=== PATIENT | female | born 1940 | race Caucasian/White ===

== ENCOUNTER 2017-06-23 15:43 | Inpatient (IN) | payer MEDICARE ==
[2017-06-23] MEDS ORDERED: Aspirin Low Dose CHEW TAB* 81 MG PO ONE (17:20)
--- NOTE | 2017-06-23 18:04 | RAD ---
INDICATION: Chest pain COMPARISON: None TECHNIQUE: An AP portable view obtained at 1758 hours is submitted. FINDINGS: Bones/Soft Tissues: There are no acute bony findings. Cardiomediastinal: The cardiomediastinal silhouette is normal. Lungs: There is mild linear change left lung base most consistent with atelectasis. There is infiltrate in the right lung base. This could represent compressive atelectasis. Pleura: There are no pleural effusions. Other: None IMPRESSION: BIBASILAR INFILTRATES AND RIGHT-SIDED EFFUSION. SUGGEST FOLLOW-UP.
[2017-06-23 18:13] LABS: Hematocrit 31 % (35-47); Hemoglobin 10.5 g/dl (12.0-16.0); Mean Corpuscular HGB Conc 34 g/dl (31-36); Mean Corpuscular Hemoglobin 31 pg (27-31); Mean Corpuscular Volume 92 fL (80-97); Mean Platelet Volume 7 um3 (7.4-10.4); Red Blood Count 3.35 10^6/ul (4.0-5.4); Red Cell Distribution Width 15 % (10.5-15); White Blood Count 10.7 10^3/ul (3.5-10.8)
[2017-06-23 18:17] LABS: Albumin 3.3 g/dL (3.2-5.2); BUN/Creatinine Ratio 15.7 (8-20); Calcium 9.3 mg/dL (8.6-10.3); EGFR African American 79.5 (>60); EGFR Non-African American 61.8 (>60); Globulin 2.9 g/dL (2-4); Potassium 3.9 mmol/L (3.5-5.0); Total Bilirubin 0.8 mg/dL (0.2-1.0); Total Protein 6.2 g/dL (6.4-8.9)
[2017-06-23] MEDS ORDERED: Albuterol/Ipratropium NEB.SOL* Albuterol 2.5 MG/Ipratropium 0.5 MG 3 ML INH ONE (18:45)
[2017-06-23] MEDS ORDERED: Iohexol 350* (CONTRAST) 500 ML MDV IV ONE (19:00)
[2017-06-23 19:05] LABS: Troponin I 0.05 ng/mL (<0.04)
--- NOTE | 2017-06-23 20:05 | RAD ---
INDICATION: Right-sided infiltrate and effusion. Short of breath. Evaluate for pulmonary embolus. COMPARISON: Chest x-ray same date TECHNIQUE: Axial source images were obtained from the thoracic inlet to the hemidiaphragms following administration of [address] angiographic technique was utilized. Coronal and sagittal reconstructed images were acquired. CHEST FINDINGS: Neck/thyroid: The visualized neck to include the thyroid appear normal. Chest wall: There are no acute abnormalities of the bony thorax or chest wall. There is no supraclavicular, infraclavicular, or axillary lymphadenopathy. Lungs : There is infiltrate right lung base which may represent compression atelectasis. There is a moderate sized right-sided pleural effusion. There is minimal left basilar atelectasis. The pulmonary interstitium appears normal. There are no endobronchial lesions. Cardiomediastinal structures: There is no CT evidence of acute pulmonary embolic disease. The heart is normal in size. There is no pericardial effusion. There is no evidence of aortic aneurysm or dissection. There is prior mitral and tricuspid valvular surgery. There is no mediastinal or hilar adenopathy. The esophagus appears normal. Pleura : There are no pleural-based masses or effusions. Other: None. IMPRESSION: NO CT EVIDENCE OF ACUTE PULMONARY EMBOLIC DISEASE. RIGHT BASILAR INFILTRATE. VALVULAR SURGERY.
[2017-06-23] MEDS ORDERED: Ciprofloxacin 400MG IVPREMIX(* 400 MG/200 ML BAG IVPB ONE (20:10)
[2017-06-23] MEDS ORDERED: Cefepime(*) 2 GM in NS 0.9% 50 ML* 50 ML IVPB ONE (20:10)
[2017-06-23] MEDS ORDERED: NS 0.9% 1000 ML* 1,000 ML IV ONE (21:30)
[2017-06-23] MEDS ORDERED: Vancomycin(*) 1,250 MG in NS 0.9% 250 ML* 250 ML IVPB ONE (21:30)
[2017-06-23] MEDS ORDERED: Vancomycin per Pharmacy* NOTE FOLLOW UP SCH (23:45)
[2017-06-23] MEDS ORDERED: oxyCODONE TAB* 5 MG TAB PO PRN (23:53)
[2017-06-23] MEDS ORDERED: Ondansetron INJ* 2 MG/ML VIAL IV PRN (23:56)
[2017-06-23] MEDS ORDERED: Acetaminophen TAB* 325 MG PO PRN (23:56)
[2017-06-23] MEDS ORDERED: Albuterol 2.5 MG/3 ML NEB.SOL* (0.083%) INH PRN (23:56)
[2017-06-23] MEDS ORDERED: CMCS: Melatonin (NF) 3 MG TAB PO PRN (23:56)
[2017-06-24] MEDS ORDERED: Metoprolol Tartrate TAB* 25 MG PO SCH ×2 (02:49→09:00)
[2017-06-24] MEDS: Metoprolol Tartrate TAB* 25 MG PO SCH ×3 (03:36→20:16)
--- NOTE | 2017-06-24 05:52 | HP ---
H&P (Free Text) History and Physical: PCP: Brown Coronado MD Cardiology: Ayush Moore MD CardioThoracic Surgery: Alejandra Riley MD [facility] Date/Time: 06/23/2017 2310 CC: chest pain HPI: Mrs Burkett is a 76YO female who underwent mitral and tricuspid valve repairs as well as an ablation for atrial fibrillation at [facility] 2016 complicated by a surgical site infection for which she completed a course of antibiotics. She awoke last night (06/22 - 06/23) with sharp lower R chest pain radiating to the R shoulder associated with SOB which is worse with inspiration, but without alleviating factors. She denies N/V, palpitations, light-headedness, and sweats. There has been subjective fevers, but no chills or sweats. She saw her PCP yesterday who recommended ED evaluation. While in the ED her saO2 was noted to be in the high 80s on RA. 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 05/18/2017 psoriatic arthritis peripheral neuropathy RBBB pleural effusion Ambulatory Orders Glucosamine-Chondroitin [Osteo Bi-Flex Regular Str 250-200 mg] 1 tab PO DAILY Acetaminophen [Acetaminophen Extra Stren] 1,000 mg PO Q6HR PRN 06/23/17 Aspirin Low Dose CHEW TAB* [Aspirin Low Dose TAB*] 81 mg PO DAILY 06/23/17 Folic Acid TAB* [Folvite TAB*] 2 mg PO DAILY 06/23/17 Furosemide TAB* [Lasix TAB*] 20 mg PO TUSA 06/23/17 Gabapentin CAP(*) [Neurontin 100 mg CAP(*)] 100 mg PO BEDTIME 06/23/17 Methotrexate TAB* 15 mg PO HADDAD 06/23/17 Metoprolol Tartrate TAB* [Lopressor TAB*] 12.5 mg PO BID 06/23/17 Multivitamins/Minerals TAB* [Theragran/minerals TAB*] 1 tab PO DAILY 06/23/17 Warfarin TAB(*) [Coumadin TAB(*)] 2 mg PO DAILY 06/23/17 oxyCODONE TAB* [Roxycodone TAB 5 mg*] 5 mg PO Q4H PRN 06/23/17 Allergies Varenicline [From Chantix] Allergy (Verified 12/22/16 09:21) Unknown Reaction Details ENVIRONMENTAL Allergy (Uncoded 05/19/16 12:31) Runny Nose PSurgHx mitral and tricuspid valve repairs 05/18/2017 atrial ablation 05/18/2017 peptic ulcer surgery 1970s tonsillectomy tubal ligation OU cataract extractions SocHx: former smoker quit 1.5 years ago, minimal alcohol, no recreational drugs ; lives with her ; retired from banking; full code status FamHx: Mother passed at 90 of 'old age'. Father passed at 56 of CAD. Siblings are positive for AFIB, pacer placement, & DM2. ROS: as above, otherwise reviewed and all were negative vitals: Vital Signs Temp 37.1 C 06/24/17 03:43 Pulse 40 06/24/17 03:43 Resp 16 06/24/17 03:43 BP 104/57 06/24/17 03:43 Pulse Ox 90 06/24/17 03:43 Intake & Output 06/23/17 06/23/17 06/24/17 11:59 23:59 11:59 Intake Total 1305.4 Balance 1305.4 Weight 69.4 kg 69.763 kg Intake: IV Fluids 1305.4 Constitutional: NAD, normally developed, well-nourished elderly white female HEENM: atraumatic; sclera/conjunctiva: non-icteric/clear; hearing: clinically intact; oropharynx: clear, mucosa moist Neck: soft tissue: non-tender; thyroid: normal Pulmonary: R>L bibasilar crackles, good aeration, no accessory muscle use CV: BR/RR, normal S1S2, no carotid bruit, no jugular venous distention, 2+ B DP/ PT, no edema Abdominal: soft, non-distended, non-tender, no rebound/guarding/rigidity, normoactive bowel sounds, no hepatosplenomegaly or masses, no costovertebral angle tenderness Musculoskeletal: general: grossly intact, no palpable tenderness Integumental: normal appearance and texture of exposed skin Psychiatric orientation: AA&O to PPS affect: calm mood: cooperative eye contact: good content: reliable responses: timely insight: good Testing: Lab Results 06/23/17 06/23/17 06/23/17 Range/Units 17:45 17:45 17:45 WBC 10.7 (3.5-10.8) 10^3/ul RBC 3.35 L (4.0-5.4) 10^6/ul Hgb 10.5 L (12.0-16.0) g/dl Hct 31 L (35-47) % MCV 92 (80-97) fL MCH 31 (27-31) pg MCHC 34 (31-36) g/dl RDW 15 (10.5-15) % Plt Count 233 (150-450) 10^3/ul MPV 7 L (7.4-10.4) um3 Neut % (Auto) 87.6 H (38-83) % Lymph % (Auto) 7.1 L (25-47) % [place] % (Auto) 4.7 (1-9) % Eos % (Auto) 0.3 (0-6) % Baso % (Auto) 0.3 (0-2) % Absolute Neuts (auto) 9.3 H (1.5-7.7) 10^3/ul Absolute Lymphs (auto) 0.8 L (1.0-4.8) 10^3/ul Absolute Monos (auto) 0.5 (0-0.8) 10^3/ul Absolute Eos (auto) 0 (0-0.6) 10^3/ul Absolute Basos (auto) 0 (0-0.2) 10^3/ul Absolute Nucleated RBC 0 10^3/ul Nucleated RBC % 0 INR (Anticoag Therapy) (0.89-1.11) Sodium 132 L (133-145) mmol/L Potassium 3.9 (3.5-5.0) mmol/L Chloride 101 (101-111) mmol/L Carbon Dioxide 25 (22-32) mmol/L Anion Gap 6 (2-11) mmol/L BUN 14 (6-24) mg/dL Creatinine 0.89 (0.51-0.95) mg/dL Est GFR ( Amer) 79.5 (>60) Est GFR (Non-Af Amer) 61.8 (>60) BUN/Creatinine Ratio 15.7 (8-20) Glucose 109 H (70-100) mg/dL Lactic Acid 1.1 (0.5-2.0) mmol/L Calcium 9.3 (8.6-10.3) mg/dL Total Bilirubin 0.80 (0.2-1.0) mg/dL AST 16 (13-39) U/L ALT 11 (7-52) U/L Alkaline Phosphatase 60 (34-104) U/L Troponin I 0.05 H* (<0.04) ng/mL B-Natriuretic Peptide ( - 100) pg/mL Total Protein 6.2 L (6.4-8.9) g/dL Albumin 3.3 (3.2-5.2) g/dL Globulin 2.9 (2-4) g/dL Albumin/Globulin Ratio 1.1 (1-3) Influenza A (Rapid) (Negative) Influenza B (Rapid) (Negative) 06/23/17 06/23/17 06/23/17 Range/Units 17:45 17:55 20:32 WBC (3.5-10.8) 10^3/ul RBC (4.0-5.4) 10^6/ul Hgb (12.0-16.0) g/dl Hct (35-47) % MCV (80-97) fL MCH (27-31) pg MCHC (31-36) g/dl RDW (10.5-15) % Plt Count (150-450) 10^3/ul MPV (7.4-10.4) um3 Neut % (Auto) (38-83) % Lymph % (Auto) (25-47) % [place] % (Auto) (1-9) % Eos % (Auto) (0-6) % Baso % (Auto) (0-2) % Absolute Neuts (auto) (1.5-7.7) 10^3/ul Absolute Lymphs (auto) (1.0-4.8) 10^3/ul Absolute Monos (auto) (0-0.8) 10^3/ul Absolute Eos (auto) (0-0.6) 10^3/ul Absolute Basos (auto) (0-0.2) 10^3/ul Absolute Nucleated RBC 10^3/ul Nucleated RBC % INR (Anticoag Therapy) 2.08 H (0.89-1.11) Sodium (133-145) mmol/L Potassium (3.5-5.0) mmol/L Chloride (101-111) mmol/L Carbon Dioxide (22-32) mmol/L Anion Gap (2-11) mmol/L BUN (6-24) mg/dL Creatinine (0.51-0.95) mg/dL Est GFR ( Amer) (>60) Est GFR (Non-Af Amer) (>60) BUN/Creatinine Ratio (8-20) Glucose (70-100) mg/dL Lactic Acid (0.5-2.0) mmol/L Calcium (8.6-10.3) mg/dL Total Bilirubin (0.2-1.0) mg/dL AST (13-39) U/L ALT (7-52) U/L Alkaline Phosphatase (34-104) U/L Troponin I 0.05 H* (<0.04) ng/mL B-Natriuretic Peptide 593 H ( - 100) pg/mL Total Protein (6.4-8.9) g/dL Albumin (3.2-5.2) g/dL Globulin (2-4) g/dL Albumin/Globulin Ratio (1-3) Influenza A (Rapid) (Negative) Influenza B (Rapid) (Negative) 06/23/17 06/24/17 Range/Units 23:27 00:09 WBC (3.5-10.8) 10^3/ul RBC (4.0-5.4) 10^6/ul Hgb (12.0-16.0) g/dl Hct (35-47) % MCV (80-97) fL MCH (27-31) pg MCHC (31-36) g/dl RDW (10.5-15) % Plt Count (150-450) 10^3/ul MPV (7.4-10.4) um3 Neut % (Auto) (38-83) % Lymph % (Auto) (25-47) % [place] % (Auto) (1-9) % Eos % (Auto) (0-6) % Baso % (Auto) (0-2) % Absolute Neuts (auto) (1.5-7.7) 10^3/ul Absolute Lymphs (auto) (1.0-4.8) 10^3/ul Absolute Monos (auto) (0-0.8) 10^3/ul Absolute Eos (auto) (0-0.6) 10^3/ul Absolute Basos (auto) (0-0.2) 10^3/ul Absolute Nucleated RBC 10^3/ul Nucleated RBC % INR (Anticoag Therapy) (0.89-1.11) Sodium (133-145) mmol/L Potassium (3.5-5.0) mmol/L Chloride (101-111) mmol/L Carbon Dioxide (22-32) mmol/L Anion Gap (2-11) mmol/L BUN (6-24) mg/dL Creatinine (0.51-0.95) mg/dL Est GFR ( Amer) (>60) Est GFR (Non-Af Amer) (>60) BUN/Creatinine Ratio (8-20) Glucose (70-100) mg/dL Lactic Acid (0.5-2.0) mmol/L Calcium (8.6-10.3) mg/dL Total Bilirubin (0.2-1.0) mg/dL AST (13-39) U/L ALT (7-52) U/L Alkaline Phosphatase (34-104) U/L Troponin I 0.04 H* (<0.04) ng/mL B-Natriuretic Peptide ( - 100) pg/mL Total Protein (6.4-8.9) g/dL Albumin (3.2-5.2) g/dL Globulin (2-4) g/dL Albumin/Globulin Ratio (1-3) Influenza A (Rapid) Negative (Negative) Influenza B (Rapid) Negative (Negative) ECG, personally reviewed: tachycardia supraventricular bigeminy RBBB rate 114, no ischemia CXR, personally reviewed: IMPRESSION: BIBASILAR INFILTRATES AND RIGHT-SIDED EFFUSION. SUGGEST FOLLOW-UP. CTA chest, personally reviewed: IMPRESSION: NO CT EVIDENCE OF ACUTE PULMONARY EMBOLIC DISEASE. RIGHT BASILAR INFILTRATE. VALVULAR SURGERY. Impression: 76F presenting with atypical R chest pain 1 month after mitral & tricuspid repairs and ablation for AFIB found to be hypoxic in the high 80s on RA with bibasilar infiltrates and R pleural effusion concerning for HCAP DIAGNOSIS & PLAN Primary suspect RLL HCAP : IV vancomycin, cefepime, & ciprofloxacin : IVFs, cautiously given elevated BNP : blood & sputum CXs : supplemental oxygen : supportive care R chest pain, atypical : telemetry : trend troponin R pleural effusion : pleural effusion was listed on D/C summary, but lateralization not identified : likely 2nd mitral/tricuspid repairs, but possibly para-pneumonic : consider thoracentesis pending clinical course AFIB, persistent : telemetry : continue warfarin & metoprolol Secondary psoriatic arthritis : hold methotrexate Admission Rational: inpatient for suspected HCAP requiring IV ABX and IVSs in patient at high risk of complications, inappropriate for outpatient setting DVTp: warfarin Code Status: full HCP:
[2017-06-24] MEDS: Omeprazole CAP* 20 MG PO SCH (06:02)
[2017-06-24] MEDS: Vancomycin(*) 750 MG in NS 0.9% 250 ML* 250 ML IVPB SCH ×3 (06:05→22:45)
[2017-06-24 07:07] LABS: Hematocrit 27 % (35-47); Hemoglobin 9.3 g/dl (12.0-16.0); Mean Corpuscular HGB Conc 34 g/dl (31-36); Mean Corpuscular Hemoglobin 31 pg (27-31); Mean Corpuscular Volume 92 fL (80-97); Mean Platelet Volume 7 um3 (7.4-10.4); Red Blood Count 2.98 10^6/ul (4.0-5.4); Red Cell Distribution Width 15 % (10.5-15); White Blood Count 8.7 10^3/ul (3.5-10.8)
[2017-06-24 07:51] LABS: EGFR African American 75.6 (>60); EGFR Non-African American 58.8 (>60)
[2017-06-24] MEDS: Aspirin Low Dose CHEW TAB* 81 MG PO SCH (08:50)
[2017-06-24] MEDS: guaiFENesin ER TAB 600 MG PO SCH ×2 (08:51→20:15)
[2017-06-24] MEDS: Cefepime(*) 2 GM in NS 0.9% 50 ML* 50 ML IVPB SCH ×2 (08:53→20:18)
[2017-06-24] MEDS ORDERED: Docusate CAP* 100 MG PO SCH (09:00)
[2017-06-24] MEDS: Ciprofloxacin IV(*) 400 MG in D5W 250 ML BAG* 160 ML IVPB SCH ×2 (10:06→21:31)
--- NOTE | 2017-06-24 13:49 | PN ---
Subjective Date of Service: 06/24/17 Interval History: Less SOB today. Minimal cough, dry. More energy. No chest pain. No more chilly feeling. No new c/o. Objective Active Medications: Acetaminophen (Tylenol Tab*) 650 mg PO Q6H PRN PRN Reason: FEVER/PAIN Albuterol (Ventolin 2.5 Mg/3 Ml Neb.Chuyita*) 2.5 mg INH Q2H PRN PRN Reason: SOB/WHEEZING Aspirin (Aspirin Low Dose Tab*) 81 mg PO DAILY [facility] Last Admin: 06/24/17 08:50 Dose: 81 mg Docusate Sodium (Colace Cap*) 200 mg PO BID [facility] Last Admin: 06/24/17 08:50 Dose: 200 mg Furosemide (Lasix Tab*) 20 mg PO TuSa@0900 [facility] Gabapentin (Neurontin Cap(*)) 100 mg PO BEDTIME [facility] Guaifenesin (Mucinex*) 1,200 mg PO BID [facility] Last Admin: 06/24/17 08:51 Dose: 1,200 mg Ciprofloxacin 400 mg/ Dextrose 200 mls @ 200 mls/hr IVPB Q12H [facility] Last Admin: 06/24/17 10:06 Dose: 200 mls/hr Cefepime HCl 2 gm/ Sodium (Chloride) 50 mls @ 100 mls/hr IVPB Q12H [facility] Last Admin: 06/24/17 08:53 Dose: 100 mls/hr Vancomycin HCl 750 mg/ Sodium (Chloride) 250 mls @ 166.667 mls/hr IVPB Q8H [facility] Last Admin: 06/24/17 13:24 Dose: 166.667 mls/hr Melatonin (Melatonin (Nf)) 3 mg PO BEDTIME PRN; Protocol PRN Reason: Sleep Metoprolol Tartrate (Lopressor Tab*) 12.5 mg PO 0900,2100 [facility] Last Admin: 06/24/17 08:51 Dose: 12.5 mg Omeprazole (Prilosec Cap*) 20 mg PO DAILY@0600 [facility] Last Admin: 06/24/17 06:02 Dose: 20 mg Ondansetron HCl (Zofran Inj*) 4 mg IV Q6H PRN PRN Reason: NAUSEA Oxycodone HCl (Roxycodone Tab*) 5 mg PO Q4H PRN PRN Reason: PAIN Pharmacy Consult (Vancomycin Per Pharmacy*) 1 note FOLLOW UP .VANC PER PHARMACY [facility] Pharmacy Profile Note (Vancomycin Trough Check) 1 note FOLLOW UP 0530 ONE Stop: 06/25/17 05:31 Warfarin Sodium (Coumadin Tab(*)) 2 mg PO DAILY@1700 [facility] PRN Reason: Protocol Vital Signs 06/23/17 06/24/17 06/24/17 23:30 00:00 00:06 Temperature 98.7 F Pulse Rate 83 84 62 Respiratory 23 22 16 Rate Blood Pressure 105/64 115/59 134/62 (mmHg) O2 Sat by Pulse 93 93 100 Oximetry 06/24/17 06/24/17 06/24/17 00:12 03:43 07:02 Temperature 99.9 F 98.7 F Pulse Rate 40 Respiratory 16 16 Rate Blood Pressure 104/57 (mmHg) O2 Sat by Pulse 90 Oximetry 06/24/17 06/24/17 07:13 11:48 Temperature 100.9 F 100.3 F Pulse Rate 66 81 Respiratory 16 16 Rate Blood Pressure 138/57 106/56 (mmHg) O2 Sat by Pulse 93 94 Oximetry Oxygen Devices in Use Now: None Appearance: Alert, partly up in bed. In good spirits. Looks comfortable. Neck: NL Appearance and Movements; NL JVP, No Thyroid Enlargement, Masses Respiratory: Symmetrical Chest Expansion and Respiratory Effort, - - Dull to percussion R base. Few rales R base Cardiovascular: NL Sounds; No Murmurs; No JVD, RRR, No Edema, - Extremities: No Edema, No Clubbing, Cyanosis, - Skin: No Rash or Ulcers, No Nodules or Sclerosis, - Neurological: Alert and Oriented x 3, NL Sensation Result Diagrams: 06/24/17 06:23 06/24/17 06:23 Additional Lab and Data: Lab Results 06/23/17 06/23/17 06/23/17 Range/Units 17:45 17:45 17:45 WBC 10.7 (3.5-10.8) 10^3/ul RBC 3.35 L (4.0-5.4) 10^6/ul Hgb 10.5 L (12.0-16.0) g/dl Hct 31 L (35-47) % MCV 92 (80-97) fL MCH 31 (27-31) pg MCHC 34 (31-36) g/dl RDW 15 (10.5-15) % Plt Count 233 (150-450) 10^3/ul MPV 7 L (7.4-10.4) um3 Neut % (Auto) 87.6 H (38-83) % Lymph % (Auto) 7.1 L (25-47) % [place] % (Auto) 4.7 (1-9) % Eos % (Auto) 0.3 (0-6) % Baso % (Auto) 0.3 (0-2) % Absolute Neuts (auto) 9.3 H (1.5-7.7) 10^3/ul Absolute Lymphs (auto) 0.8 L (1.0-4.8) 10^3/ul Absolute Monos (auto) 0.5 (0-0.8) 10^3/ul Absolute Eos (auto) 0 (0-0.6) 10^3/ul Absolute Basos (auto) 0 (0-0.2) 10^3/ul Absolute Nucleated RBC 0 10^3/ul Nucleated RBC % 0 Sodium 132 L (133-145) mmol/L Potassium 3.9 (3.5-5.0) mmol/L Chloride 101 (101-111) mmol/L Carbon Dioxide 25 (22-32) mmol/L Anion Gap 6 (2-11) mmol/L BUN 14 (6-24) mg/dL Creatinine 0.89 (0.51-0.95) mg/dL Est GFR ( Amer) 79.5 (>60) Est GFR (Non-Af Amer) 61.8 (>60) BUN/Creatinine Ratio 15.7 (8-20) Glucose 109 H (70-100) mg/dL Lactic Acid 1.1 (0.5-2.0) mmol/L Calcium 9.3 (8.6-10.3) mg/dL Total Bilirubin 0.80 (0.2-1.0) mg/dL AST 16 (13-39) U/L ALT 11 (7-52) U/L Alkaline Phosphatase 60 (34-104) U/L Troponin I Pending Total Protein 6.2 L (6.4-8.9) g/dL Albumin 3.3 (3.2-5.2) g/dL Globulin 2.9 (2-4) g/dL Albumin/Globulin Ratio 1.1 (1-3) Microbiology and Other Data: Microbiology 06/24/17 01:20 Legionella Urinary Antigen - Final Urine Negative Legionella Streptococcus pneumoniae Ag Screen - Final Negative S. pneumo Antigen 06/24/17 00:05 Influenza Types A,B Antigen (YASMIN) - Final Nasopharyngeal Specimen received for Influenza A/B Molecular testing Assess/Plan/Problems-Billing Assessment: - Patient Problems (1) Pneumonia Current Visit: Yes Status: Acute Code(s): J18.9 - PNEUMONIA, UNSPECIFIED ORGANISM SNOMED Code(s): 060410875 Comment: Admitted 29 days after discharge from [facility]. Clinically responding to antibiotics as of 06/24. Continue antibiotics. Awaiting blood C&S report. O2 sat 95-97% on RA 06/24 at rest by me. (2) Atrial fibrillation Current Visit: Yes Status: Acute Code(s): I48.91 - UNSPECIFIED ATRIAL FIBRILLATION SNOMED Code(s): 94804066 Comment: INR goal 2.0-2.5 per [facility] physician. I think she missed her dose . INR 06/25. 05/2017: amputation of L atreial appendage, R and L sided ablation. (3) S/P mitral valve repair Current Visit: Yes Status: Acute Code(s): Z98.890 - OTHER SPECIFIED POSTPROCEDURAL STATES SNOMED Code(s): 86818548023264 Comment: 05/2017: Mitral valve reconstruction with a #34 future ring. Amputation of L atrial appendage. (4) Status post tricuspid valve repair Current Visit: Yes Status: Acute Code(s): Z98.890 - OTHER SPECIFIED POSTPROCEDURAL STATES SNOMED Code(s): 383883479066663 Comment: 05/2017: Tricuspid valve annuloplasty with a Simplici-T band. (5) Rheumatoid arthritis Current Visit: Yes Status: Acute Code(s): M06.9 - RHEUMATOID ARTHRITIS, UNSPECIFIED SNOMED Code(s): 10387301 Comment: Pt advised to omit MTX this Jun 28.
[2017-06-24] MEDS: Warfarin TAB(*) 2 MG PO SCH (16:50)
[2017-06-24] MEDS: Gabapentin CAP(*) 100 MG PO SCH (20:15)
[2017-06-25] MEDS ORDERED: Vancomycin Trough Check NOTE FOLLOW UP ONE (05:30)
[2017-06-25] MEDS: Vancomycin(*) 750 MG in NS 0.9% 250 ML* 250 ML IVPB SCH ×3 (05:38→21:37)
[2017-06-25] MEDS: Omeprazole CAP* 20 MG PO SCH (05:38)
[2017-06-25 06:05] LABS: Hematocrit 30 % (35-47); Hemoglobin 9.7 g/dl (12.0-16.0); Mean Corpuscular HGB Conc 33 g/dl (31-36); Mean Corpuscular Hemoglobin 30 pg (27-31); Mean Corpuscular Volume 92 fL (80-97); Mean Platelet Volume 7 um3 (7.4-10.4); Red Blood Count 3.19 10^6/ul (4.0-5.4); Red Cell Distribution Width 15 % (10.5-15); White Blood Count 7.5 10^3/ul (3.5-10.8)
[2017-06-25 06:26] LABS: BUN/Creatinine Ratio 11.2 (8-20); Calcium 8.9 mg/dL (8.6-10.3); EGFR African American 79.5 (>60); EGFR Non-African American 61.8 (>60); Potassium 3.6 mmol/L (3.5-5.0)
--- NOTE | 2017-06-25 08:17 | ED ---
Andrea Faulkner Thomas, scribed for Lacho Cantrell MD on 06/23/17 at 1847 . Shortness of Breath - HPI Summary HPI Summary: The pt is a 76 y/o F referred from her PCPs office and c/o SOB that began yesterday. She also complains of chest pain when taking a deep breath. This pain radiates to her right shoulder, RUQ abdomen, and upper back. This area is not tender to touch. A month ago, she had two heart valve repairs performed at [facility]. She recently finished a course of antibiotics due to an infection of the surgical site. Pt additionally c/o feelings of hotness. Pt denies dizziness, lightheadedness, and cough. She has never been on oxygen before. She reports that after her surgery, her leg swelling improved. PMHx: leaky mitral valve. PSHx: valve repairs. SHx: former smoker. - History of Current Complaint Chief Complaint: EDChestPainROMI Time Seen by Provider: 06/23/17 17:19 Hx Obtained From: Patient Onset/Duration: Lasting Days - onset yesterday, Still Present Timing: Constant Current Severity: Moderate Aggrevating Factors: Nothing Alleviating Factors: Nothing Associated Signs & Symptoms: Chest Pain Unrelated to Cough - Allergy/Home Medications Allergies/Adverse Reactions: Allergies Allergy/AdvReac Type Severity Reaction Status Date / Time Varenicline [From Chantix] Allergy Unknown Verified 12/22/16 09:21 Reaction Details ENVIRONMENTAL Allergy Runny Nose Uncoded 05/19/16 12:31 Home Medications: Home Medications Acetaminophen [Acetaminophen Extra Stren] 1,000 mg PO Q6HR PRN 06/23/17 [ History Confirmed 06/23/17] Aspirin Low Dose CHEW TAB* [Aspirin Low Dose TAB*] 81 mg PO DAILY 06/23/17 [ History Confirmed 06/23/17] Folic Acid TAB* [Folvite TAB*] 2 mg PO DAILY 06/23/17 [History Confirmed ] Furosemide TAB* [Lasix TAB*] 20 mg PO TUSA 06/23/17 [History Confirmed 06/23/17] Gabapentin CAP(*) [Neurontin 100 mg CAP(*)] 100 mg PO BEDTIME 06/23/17 [History Confirmed 06/23/17] Methotrexate TAB* 15 mg PO HADDAD 06/23/17 [History Confirmed 06/23/17] Metoprolol Tartrate TAB* [Lopressor TAB*] 12.5 mg PO BID 06/23/17 [History Confirmed 06/23/17] Multivitamins/Minerals TAB* [Theragran/minerals TAB*] 1 tab PO DAILY 06/23/17 [ History Confirmed 06/23/17] Warfarin TAB(*) [Coumadin TAB(*)] 2 mg PO DAILY 06/23/17 [History Confirmed 09/27] oxyCODONE TAB* [Roxycodone TAB 5 mg*] 5 mg PO Q4H PRN 06/23/17 [History Confirmed 06/23/17] PMH/Surg Hx/FS Hx/Imm Hx Previously Healthy: No Cardiovascular History: Reports: Hx Valvular Heart Disease - LEAKY MITRAL VALVE GI History: Reports: Hx Ulcer - PEPTIC ULCER-1969'S- HAD SURGERY FOR- NO PROBLEMS NOW Musculoskeletal History: Reports: Hx Arthritis - PSORIATIC ARTHRITIS IN ALL JOINTS Denies: Hx Osteoporosis Sensory History: Reports: Hx Cataracts, Hx Contacts or Glasses - GLASSES Denies: Hx Hearing Aid Opthamlomology History: Reports: Hx Cataracts, Hx Contacts or Glasses - GLASSES - Surgical History Surgery Procedure, Year, and Place: 1944 TONSILLECTOMY, [facility]. 1975 PEPTIC ULCER REPAIR, [facility] [place]. 1979' TUBAL LIGATION, [facility] [place]. 2009 BASAL CELL CARCINOMA REMOVED FROM RIGHT ARM AND RIGHT LEG, OFFICE. CYST REMOVED FROM INSIDE OF MOUTH, [facility] [place]. CYST REMOVED FROM THE LEFT SIDE OF NECK, OFFICE Hx Anesthesia Reactions: No - Immunization History Date of Tetanus Vaccine: unknown Date of Influenza Vaccine: 2015 Infectious Disease History: No Infectious Disease History: Denies: Traveled Outside the [place] in Last 30 Days - Family History Known Family History: Negative: Blood Disorder - Social History Alcohol Use: Occasionally Alcohol Amount: 1-2 DRINKS Substance Use Type: Reports: None Smoking Status (MU): Former Smoker Amount Used/How Often: <1/2 PPD X 50 YEARS AGO Have You Smoked in the Last Year: Yes Review of Systems Positive: Other - POS: feelings of hotness. Negative: Fever, Chills Negative: Erythema - eyes Negative: Sore Throat Positive: Chest Pain - when taking a deep breath, radiates to right shoulder, RUQ abdomen, and upper back Positive: Shortness Of Breath - onset yesterday Negative: Abdominal Pain, Vomiting, Nausea Negative: dysuria, hematuria Negative: Myalgia, Edema - legs Negative: Rash Neurological: Other - NEG: dizziness, lightheadedness All Other Systems Reviewed And Are Negative: Yes Physical Exam - Summary Physical Exam Summary: Constitutional: Well-developed, Well-nourished, Alert. (-) Distressed Skin: Warm, Dry HENT: Normocephalic; Atraumatic Eyes: Conjunctiva normal Neck: Musculoskeletal ROM normal neck. (-) JVD, (-) Stridor, (-) Tracheal deviation Cardio: Rhythm regular, rate normal, Heart sounds normal; Intact distal pulses; The pedal pulses are 2+ and symmetric. Radial pulses are 2+ and symmetric. (-) Murmur Pulmonary/Chest wall: There are rhonchi at the base. Effort normal. (-) Respiratory distress, (-) Wheezes, (-) Rales Abd: Soft, (-) Tenderness, (-) Distension, (-) Guarding, (-) Rebound Musculoskeletal: (-) Edema Lymph: (-) Cervical adenopathy Neuro: Alert, Oriented x3 Psych: Mood and affect Normal Triage Information Reviewed: Yes Vital Signs On Initial Exam: Initial Vitals Temp Pulse Resp BP Pulse Ox 100.1 F 106 20 117/85 99 06/23/17 15:46 06/23/17 15:46 06/23/17 15:46 06/23/17 15:46 06/23/17 15:46 Vital Signs Reviewed: Yes - Dianna Coma Scale Coma Scale Total: 15 Diagnostics - Vital Signs Vital Signs Temp Pulse Resp BP Pulse Ox 06/23/17 17:30 48 26 110/57 91 06/23/17 17:00 63 26 102/51 93 06/23/17 16:37 104 06/23/17 16:30 60 95/58 94 06/23/17 16:29 104 06/23/17 16:07 92 88 06/23/17 16:06 54 70 06/23/17 16:04 101/64 06/23/17 15:46 100.1 F 106 20 117/85 99 - Laboratory Lab Results: Lab Results 06/23/17 06/23/17 06/23/17 Range/Units 17:45 17:45 17:45 WBC 10.7 (3.5-10.8) 10^3/ul RBC 3.35 L (4.0-5.4) 10^6/ul Hgb 10.5 L (12.0-16.0) g/dl Hct 31 L (35-47) % MCV 92 (80-97) fL MCH 31 (27-31) pg MCHC 34 (31-36) g/dl RDW 15 (10.5-15) % Plt Count 233 (150-450) 10^3/ul MPV 7 L (7.4-10.4) um3 Neut % (Auto) 87.6 H (38-83) % Lymph % (Auto) 7.1 L (25-47) % Cooke % (Auto) 4.7 (1-9) % Eos % (Auto) 0.3 (0-6) % Baso % (Auto) 0.3 (0-2) % Absolute Neuts (auto) 9.3 H (1.5-7.7) 10^3/ul Absolute Lymphs (auto) 0.8 L (1.0-4.8) 10^3/ul Absolute Monos (auto) 0.5 (0-0.8) 10^3/ul Absolute Eos (auto) 0 (0-0.6) 10^3/ul Absolute Basos (auto) 0 (0-0.2) 10^3/ul Absolute Nucleated RBC 0 10^3/ul Nucleated RBC % 0 Sodium 132 L (133-145) mmol/L Potassium 3.9 (3.5-5.0) mmol/L Chloride 101 (101-111) mmol/L Carbon Dioxide 25 (22-32) mmol/L Anion Gap 6 (2-11) mmol/L BUN 14 (6-24) mg/dL Creatinine 0.89 (0.51-0.95) mg/dL Est GFR ( Amer) 79.5 (>60) Est GFR (Non-Af Amer) 61.8 (>60) BUN/Creatinine Ratio 15.7 (8-20) Glucose 109 H (70-100) mg/dL Lactic Acid 1.1 (0.5-2.0) mmol/L Calcium 9.3 (8.6-10.3) mg/dL Total Bilirubin 0.80 (0.2-1.0) mg/dL AST 16 (13-39) U/L ALT 11 (7-52) U/L Alkaline Phosphatase 60 (34-104) U/L Troponin I Pending Total Protein 6.2 L (6.4-8.9) g/dL Albumin 3.3 (3.2-5.2) g/dL Globulin 2.9 (2-4) g/dL Albumin/Globulin Ratio 1.1 (1-3) Result Diagrams: 06/23/17 17:45 06/23/17 17:45 Lab Statement: Any lab studies that have been ordered have been reviewed, and results considered in the medical decision making process. - Radiology CXR Xray Interpretation: Positive (See Comments) - BIBASILAR INFILTRATES AND RIGHT- SIDED EFFUSION. SUGGEST FOLLOW-UP. ED Physician has reviewed these results and agrees. Radiology Interpretation Completed By: Radiologist - CT CTA Chest CT Interpretation: Positive (See Comments) - NO CT EVIDENCE OF ACUTE PULMONARY EMBOLIC DISEASE. RIGHT BASILAR INFILTRATE. VALVULAR SURGERY. ED Physician has reviewed these results and agrees. CT Interpretation Completed By: Radiologist Course/Dx - Course Assessment/Plan: The pt is a 76 y/o F referred from her PCPs office and c/o SOB that began yesterday. She also complains of chest pain when taking a deep breath. This pain radiates to her right shoulder, RUQ abdomen, and upper back. This area is not tender to touch. A month ago, she had two heart valve repairs performed at [facility]. She recently finished a course of antibiotics due to an infection of the surgical site. Pt additionally c/o feelings of hotness. Pt denies dizziness, lightheadedness, and cough. She has never been on oxygen before. She reports that after her surgery, her leg swelling improved. PMHx: leaky mitral valve. PSHx: valve repairs. SHx: former smoker. In the ED course the patient was given albuterol, ASA, Maxipime, Ciproflocaxin, Vancomycin , and IV fluids. Bloodwork was obtained. CXR shows BIBASILAR INFILTRATES AND RIGHT-SIDED EFFUSION. SUGGEST FOLLOW-UP. CTA Abd/Pel shows NO CT EVIDENCE OF ACUTE PULMONARY EMBOLIC DISEASE. RIGHT BASILAR INFILTRATE. VALVULAR SURGERY. She is diagnosed with healthcare-associated pneumonia and hypoxemia. I consulted with Dr. Christianson, cardiothorac surgeon at [facility], at 18:00. He says that her hemoglobin was 10 when she left [facility]. He says that there can be recurrent incisional and pleuritic pain after her surgery. He does not have concern for significant postoperative complication. I also consulted with Dr. Spangler, hospitalist, who admits the patient to [facility] [place]. At 23:09. - Diagnoses Provider Diagnoses: Healthcare-associated pneumonia, Hypoxemia - Physician Notifications Discussed Care of Patient With: Malina Christianson Time Discussed With Above Provider: 18:00 Instructed by Provider To: Other - He says that her hemoglobin was 10 when she left [facility]. He says that there can be recurrent incisional and pleuritic pain after her surgery. He does not have concern for significant postoperative complication. I also consulted with Dr. Spangler, hospitalist, who admits the patient to [facility]. At 23:09. Discharge - Discharge Plan Condition: Fair Disposition: ADMITTED TO [facility] The documentation as recorded by the Andrea anguiano Thomas accurately reflects the service I personally performed and the decisions made by me, Lacho Cantrell MD.
[2017-06-25] MEDS: guaiFENesin ER TAB 600 MG PO SCH ×2 (08:38→20:58)
[2017-06-25] MEDS: Metoprolol Tartrate TAB* 25 MG PO SCH ×2 (08:38→20:58)
[2017-06-25] MEDS: Aspirin Low Dose CHEW TAB* 81 MG PO SCH (08:38)
[2017-06-25] MEDS ORDERED: Ciprofloxacin 400MG IVPREMIX(* 400 MG/200 ML BAG IVPB SCH (09:30)
[2017-06-25] MEDS: Cefepime(*) 2 GM in NS 0.9% 50 ML* 50 ML IVPB SCH ×2 (09:40→19:56)
--- NOTE | 2017-06-25 11:10 | PN ---
Subjective Date of Service: 06/25/17 Interval History: Patient had no palpitations or dizziness or any other sx's during her episode of atrial fib today. No cough, SOB. Feels better. Objective Active Medications: Acetaminophen (Tylenol Tab*) 650 mg PO Q6H PRN PRN Reason: FEVER/PAIN Albuterol (Ventolin 2.5 Mg/3 Ml Neb.Chuyita*) 2.5 mg INH Q2H PRN PRN Reason: SOB/WHEEZING Aspirin (Aspirin Low Dose Tab*) 81 mg PO DAILY [facility] Last Admin: 06/25/17 08:38 Dose: 81 mg Furosemide (Lasix Tab*) 20 mg PO TuSa@0900 [facility] Gabapentin (Neurontin Cap(*)) 100 mg PO BEDTIME [facility] Last Admin: 06/24/17 20:15 Dose: 100 mg Guaifenesin (Mucinex*) 1,200 mg PO BID [facility] Last Admin: 06/25/17 08:38 Dose: 1,200 mg Cefepime HCl 2 gm/ Sodium (Chloride) 50 mls @ 100 mls/hr IVPB Q12H [facility] Last Admin: 06/25/17 09:40 Dose: 100 mls/hr Vancomycin HCl 750 mg/ Sodium (Chloride) 250 mls @ 166.667 mls/hr IVPB Q8H [facility] Last Admin: 06/25/17 05:38 Dose: 166.667 mls/hr Ciprofloxacin/Dextrose (Cipro 400 Mg Ivpremix(*)) 400 mg in 200 mls @ 200 mls/ hr IVPB Q12H [facility] Metoprolol Tartrate (Lopressor Tab*) 12.5 mg PO 0900,2100 [facility] Last Admin: 06/25/17 08:38 Dose: 12.5 mg Omeprazole (Prilosec Cap*) 20 mg PO DAILY@0600 [facility] Last Admin: 06/25/17 05:38 Dose: 20 mg Ondansetron HCl (Zofran Inj*) 4 mg IV Q6H PRN PRN Reason: NAUSEA Oxycodone HCl (Roxycodone Tab*) 5 mg PO Q4H PRN PRN Reason: PAIN Pharmacy Consult (Vancomycin Per Pharmacy*) 1 note FOLLOW UP .VANC PER PHARMACY [facility] Warfarin Sodium (Coumadin Tab(*)) 2 mg PO DAILY@1700 [facility] PRN Reason: Protocol Last Admin: 06/24/17 16:50 Dose: 2 mg Vital Signs 06/24/17 06/24/17 06/24/17 11:48 15:15 19:47 Temperature 100.3 F 100.2 F 99.2 F Pulse Rate 81 86 57 Respiratory 16 18 20 Rate Blood Pressure 106/56 104/50 129/61 (mmHg) O2 Sat by Pulse 94 98 92 Oximetry 06/24/17 06/24/17 06/24/17 20:15 22:15 23:33 Temperature 99.2 F Pulse Rate 86 Respiratory 16 16 20 Rate Blood Pressure 117/61 (mmHg) O2 Sat by Pulse 93 Oximetry 06/25/17 06/25/17 06/25/17 01:44 03:00 07:52 Temperature 99.0 F Pulse Rate 82 Respiratory 24 16 Rate Blood Pressure 116/62 (mmHg) O2 Sat by Pulse 93 93 Oximetry 06/25/17 08:43 Temperature Pulse Rate 82 Respiratory 19 Rate Blood Pressure (mmHg) O2 Sat by Pulse 93 Oximetry Oxygen Devices in Use Now: None Appearance: Alert, in good spirits. Supine in bed. Looks comfortable. No cough during my visit. Eyes: No Scleral Icterus Neck: NL Appearance and Movements; NL JVP, No Thyroid Enlargement, Masses Respiratory: Symmetrical Chest Expansion and Respiratory Effort - dull to percussion and diminished BS R base Cardiovascular: NL Sounds; No Murmurs; No JVD, RRR, No Edema, - Extremities: No Edema, No Clubbing, Cyanosis, - Skin: No Rash or Ulcers, No Nodules or Sclerosis, - Neurological: Alert and Oriented x 3, NL Sensation Result Diagrams: 06/25/17 04:54 06/25/17 04:54 Additional Lab and Data: Lab Results 06/23/17 06/23/17 06/23/17 Range/Units 17:45 17:45 17:45 WBC 10.7 (3.5-10.8) 10^3/ul RBC 3.35 L (4.0-5.4) 10^6/ul Hgb 10.5 L (12.0-16.0) g/dl Hct 31 L (35-47) % MCV 92 (80-97) fL MCH 31 (27-31) pg MCHC 34 (31-36) g/dl RDW 15 (10.5-15) % Plt Count 233 (150-450) 10^3/ul MPV 7 L (7.4-10.4) um3 Neut % (Auto) 87.6 H (38-83) % Lymph % (Auto) 7.1 L (25-47) % Ward % (Auto) 4.7 (1-9) % Eos % (Auto) 0.3 (0-6) % Baso % (Auto) 0.3 (0-2) % Absolute Neuts (auto) 9.3 H (1.5-7.7) 10^3/ul Absolute Lymphs (auto) 0.8 L (1.0-4.8) 10^3/ul Absolute Monos (auto) 0.5 (0-0.8) 10^3/ul Absolute Eos (auto) 0 (0-0.6) 10^3/ul Absolute Basos (auto) 0 (0-0.2) 10^3/ul Absolute Nucleated RBC 0 10^3/ul Nucleated RBC % 0 Sodium 132 L (133-145) mmol/L Potassium 3.9 (3.5-5.0) mmol/L Chloride 101 (101-111) mmol/L Carbon Dioxide 25 (22-32) mmol/L Anion Gap 6 (2-11) mmol/L BUN 14 (6-24) mg/dL Creatinine 0.89 (0.51-0.95) mg/dL Est GFR ( Amer) 79.5 (>60) Est GFR (Non-Af Amer) 61.8 (>60) BUN/Creatinine Ratio 15.7 (8-20) Glucose 109 H (70-100) mg/dL Lactic Acid 1.1 (0.5-2.0) mmol/L Calcium 9.3 (8.6-10.3) mg/dL Total Bilirubin 0.80 (0.2-1.0) mg/dL AST 16 (13-39) U/L ALT 11 (7-52) U/L Alkaline Phosphatase 60 (34-104) U/L Troponin I Pending Total Protein 6.2 L (6.4-8.9) g/dL Albumin 3.3 (3.2-5.2) g/dL Globulin 2.9 (2-4) g/dL Albumin/Globulin Ratio 1.1 (1-3) Microbiology and Other Data: Microbiology 06/24/17 01:20 Legionella Urinary Antigen - Final Urine Negative Legionella Streptococcus pneumoniae Ag Screen - Final Negative S. pneumo Antigen 06/24/17 00:05 Influenza Types A,B Antigen (YASMIN) - Final Nasopharyngeal Specimen received for Influenza A/B Molecular testing Assess/Plan/Problems-Billing Assessment: - Patient Problems (1) Pneumonia Current Visit: Yes Status: Acute Code(s): J18.9 - PNEUMONIA, UNSPECIFIED ORGANISM SNOMED Code(s): 225977936 Comment: Admitted 29 days after discharge from [facility]. Clinically responding to antibiotics as of 06/24. Continue antibiotics. Awaiting blood C&S report. O2 sat 95-97% on RA 06/24 at rest by me. (2) Atrial fibrillation Current Visit: Yes Status: Acute Code(s): I48.91 - UNSPECIFIED ATRIAL FIBRILLATION SNOMED Code(s): 76502096 Comment: About 1 hr of atrial fib 8 AM 06/25, rate [address] Simon to consult. INR goal 2.0-2.5 per [facility] physician. I think she missed her dose 06/23. INR 06/25 1.77, should come up as only took average of about 1.5 mg at home and is on antibiotics now. 05/2017: amputation of L atreial appendage, R and L sided ablation. INR 06/26. (3) S/P mitral valve repair Current Visit: Yes Status: Acute Code(s): Z98.890 - OTHER SPECIFIED POSTPROCEDURAL STATES SNOMED Code(s): 84355146493269 Comment: 05/2017: Mitral valve reconstruction with a #34 future ring. Amputation of L atrial appendage. (4) Status post tricuspid valve repair Current Visit: Yes Status: Acute Code(s): Z98.890 - OTHER SPECIFIED POSTPROCEDURAL STATES SNOMED Code(s): 038519573831714 Comment: 05/2017: Tricuspid valve annuloplasty with a Simplici-T band. (5) Rheumatoid arthritis Current Visit: Yes Status: Acute Code(s): M06.9 - RHEUMATOID ARTHRITIS, UNSPECIFIED SNOMED Code(s): 16370274 Comment: Pt advised to omit MTX this Thursday, Jun 28.
[2017-06-25] MEDS: Ciprofloxacin 400MG IVPREMIX(* 400 MG/200 ML BAG IVPB SCH ×2 (11:49→23:31)
[2017-06-25] MEDS ORDERED: NS 0.9% 250 ML* 250 ML ONE (16:35)
[2017-06-25] MEDS: Warfarin TAB(*) 2 MG PO SCH (16:36)
--- NOTE | 2017-06-25 17:46 | CONS ---
CC: Dr. Coronado; Dr. Moore from Cardiology; Dr. Simon; Hospitalist Service. CARDIOLOGY CONSULT: DATE OF CONSULT: 06/25/17 HISTORY OF PRESENT ILLNESS: I was asked by hospitalist service Dr. Tucker to see this 76-year-old f emale patient who was hospitalized on 06/23/17 with pneumonia. The patient was in atrial fibrillatio n and cardiology consult was further requested. The patient recently just had a mitral valve repair and tricuspid valve repair that was done at the [facility] by Dr. Riley and also MAZE procedure for the atrial fibrillation that was done on 05/18/17. Mostly kilo harry was seen by Dr. Moore, her primary obstetrician/gynecologist, on 06/10/17. Her cardiac catheterization done in 02/05/[address] Mcdermott showed 45% to 50% proximal LAD disease and EDP 20 mmHg. The patient was admitted on Thursday night, today is . She was treated with antibiotic treatment. She i s feeling much better. She was in atrial fibrillation today, but converted spontaneously to normal sinus rhythm. In interviewing her, she feels much better actually. She gives no active symptoms of chest pain, no orthopnea, no PNDs, no dizziness. No syncope, no fever, no chills. No skin rash, n o thrombosis, no hematochezia, no nausea, no vomiting. No abdominal pain, no syncope, no swelling i n the lower extremities is appreciated. Her review of all other systems essentially is negative. PAST MEDICAL HISTORY: Includes history of severe mitral insufficiency and tricuspid insufficiency, mild coronary artery disease, normal left ventricular systolic function, atrial fibrillation, right bundle-branch block, and inferior Q- wave abnormalities. She does have a history of psoriatic arthr itis, peptic ulcer disease, and osteopenia. She does have a history of cardioversion in 12/22/16 an d 12/29/16, REGINA guided at that time. 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 MEDICATIONS: As an inpatient: 1. Tylenol 650 mg p.o. q.6 hours p.r.n. 2. Ventolin inhaler. 3. Aspirin 81 mg daily. 4. Cefepime 2 g q.12 hours. 5. Cipro 400 mg IV twice a day. 6. Lasix 20 mg daily. 7. Neurontin 100 mg daily. 8. Lopressor 12.5 mg twice a day. 9. Omeprazole 20 mg daily. 10. Zofran. 11. She is also on Coumadin adjusted to her PT and INR. ALLERGIES: She is allergic to CHANTIX, 11/27/16. FAMILY HISTORY: No family history of premature coronary artery disease. SOCIAL HISTORY: She used to smoke, she quit a year ago in 2016. She drinks alcohol socially. No h istory of illicit drug use. She is , she lives with . She is retired. REVIEW OF SYSTEMS: Her review of all other systems essentially is negative. PHYSICAL EXAM: She is awake, alert, and oriented. She is not in acute distress. Vitals: Blood pre ssure 109/53, pulse 80, she is in sinus rhythm. Temperature 99.5. Respiratory rate 16. Head and N bella Exam: Normocephalic, atraumatic head. Ears, Nose, and Throat: Essentially benign. Neck: Supp le. JVP is not elevated. No carotid bruits. No masses in the neck is appreciated. Chest: Diminis hed air entry at the bases with some rhonchi, no rales. Heart: Normal S1, S2. No added sounds, no gallops, no rubs. No significant murmurs appreciated. Abdomen: Benign, soft. Positive bowel soun ds. Extremities: No edema, no cyanosis, no clubbing. Skin exam is normal. Psych: Normal affect and mood. FLEECER: No focal deficits appreciated. DIAGNOSTIC STUDIES/LAB DATA: Her labs, white blood cells 7.5, hemoglobin 9.7, hematocrit 30, and pl atelets 246. Her INR is 1.77. Her chemistry showed sodium 137, potassium 3.6, chloride 108, total CO2 26, BUN 10, creatinine 0.89. Troponin 0.4 and then 0.5. She had an EKG today, showed actually atrial fibrillation that was about 8:18 this morning, heart rate about 126, right bundle-branch bloc k. There was no repeat EKG after she converted to normal sinus rhythm about 10 o'clock this morning. IMPRESSION: The patient is a 76-year-old female with: 1. Hospitalization with pneumonia, on antibiotic treatment. 2. Recent mitral valve repair, tricuspid valve repair, and MAZE procedure for atrial fibrillation d one at [facility], Dr. Riley 05/18/17 for primary severe mitr al insufficiency and tricuspid insufficiency. 3. Right bundle-branch block and abnormal EKG. 4. Psoriatic arthritis. 5. History of normal left ventricular systolic function. 6. The patient converted spontaneously to normal sinus rhythm today about 10 o'clock this morning. 7. The patient hospitalized with pneumonia, on antibiotic treatment. 8. Hyperlipidemia, on medical treatment. PLAN: The patient is currently in normal sinus rhythm with a well-controlled heart rate. She is he modynamically stable. On exam, she is not in congestive heart failure. I have discussed this with the patient and , who was available at bedside, about her medical condition. I have discusse d this with Dr. Tucker from the hospitalist service. My recommendation is to continue her current c ardiac medications and rate control and Coumadin treatment with target INR 2.0 to 3.0. Important to keep her potassium 4.0 or more, magnesium 2.0 or more. Well hydrated is important. Avoid significa nt alcohol, caffeinated drinks, and stimulants. Any further recommendations will be pending her cli nical outcome. TIME SPENT: More than half of at least 60 plus minutes were on [id number] education and counselin g mode, discussing all of the above and making further recommendations accordingly. [id number]/[facility] #: [id number]
[2017-06-25] MEDS: Gabapentin CAP(*) 100 MG PO SCH (20:58)
[2017-06-26] MEDS: Omeprazole CAP* 20 MG PO SCH (05:28)
[2017-06-26] MEDS: Vancomycin(*) 750 MG in NS 0.9% 250 ML* 250 ML IVPB SCH (05:28)
[2017-06-26 07:55] VITALS: BP 121/53
[2017-06-26] MEDS: Aspirin Low Dose CHEW TAB* 81 MG PO SCH (08:08)
[2017-06-26] MEDS: guaiFENesin ER TAB 600 MG PO SCH (08:08)
[2017-06-26] MEDS: Metoprolol Tartrate TAB* 25 MG PO SCH (08:08)
[2017-06-26] MEDS: Cefepime(*) 2 GM in NS 0.9% 50 ML* 50 ML IVPB SCH (08:29)
[2017-06-26] MEDS ORDERED: Metoprolol Tartrate TAB* 25 MG PO ONE (08:42)
[2017-06-26] MEDS ORDERED: Ciprofloxacin TAB* 500 MG PO SCH (09:00)
--- NOTE | 2017-06-26 09:09 | DCNOTE ---
Objective Active Medications: Acetaminophen (Tylenol Tab*) 650 mg PO Q6H PRN PRN Reason: FEVER/PAIN Albuterol (Ventolin 2.5 Mg/3 Ml Neb.Chuyita*) 2.5 mg INH Q2H PRN PRN Reason: SOB/WHEEZING Aspirin (Aspirin Low Dose Tab*) 81 mg PO DAILY [facility] Last Admin: 06/26/17 08:08 Dose: 81 mg Ciprofloxacin (Cipro Tab*) 500 mg PO Q12HR [facility] Furosemide (Lasix Tab*) 20 mg PO TuSa@0900 [facility] Gabapentin (Neurontin Cap(*)) 100 mg PO BEDTIME [facility] Last Admin: 06/25/17 20:58 Dose: 100 mg Guaifenesin (Mucinex*) 1,200 mg PO BID [facility] Last Admin: 06/26/17 08:08 Dose: 1,200 mg Metoprolol Tartrate (Lopressor Tab*) 25 mg PO 0900,2100 [facility] Omeprazole (Prilosec Cap*) 20 mg PO DAILY@0600 [facility] Last Admin: 06/26/17 05:28 Dose: 20 mg Ondansetron HCl (Zofran Inj*) 4 mg IV Q6H PRN PRN Reason: NAUSEA Oxycodone HCl (Roxycodone Tab*) 5 mg PO Q4H PRN PRN Reason: PAIN Warfarin Sodium (Coumadin Tab(*)) 2 mg PO DAILY@1700 [facility] PRN Reason: Protocol Last Admin: 06/25/17 16:36 Dose: 2 mg Vital Signs 06/25/17 06/25/17 06/25/17 10:53 15:22 18:02 Temperature 99.5 F 99.8 F Pulse Rate 80 93 Respiratory 16 16 Rate Blood Pressure 109/53 125/62 (mmHg) O2 Sat by Pulse 97 87 95 Oximetry 06/25/17 06/25/17 06/25/17 19:14 19:41 20:00 Temperature 98.5 F Pulse Rate 136 82 Respiratory 18 20 16 Rate Blood Pressure 112/47 (mmHg) O2 Sat by Pulse 96 98 Oximetry 06/25/17 06/25/17 06/26/17 20:58 22:58 00:00 Temperature Pulse Rate Respiratory 16 16 Rate Blood Pressure (mmHg) O2 Sat by Pulse 98 Oximetry 06/26/17 06/26/17 06/26/17 00:08 03:21 07:53 Temperature 97.6 F 99.6 F Pulse Rate 82 103 Respiratory 16 16 18 Rate Blood Pressure 120/59 133/63 (mmHg) O2 Sat by Pulse 98 96 Oximetry 06/26/17 07:55 Temperature 97.8 F Pulse Rate 58 Respiratory 18 Rate Blood Pressure 121/53 (mmHg) O2 Sat by Pulse 98 Oximetry Oxygen Devices in Use Now: None Result Diagrams: 06/25/17 04:54 06/25/17 04:54 Additional Lab and Data: Lab Results 06/23/17 06/23/17 06/23/17 Range/Units 17:45 17:45 17:45 WBC 10.7 (3.5-10.8) 10^3/ul RBC 3.35 L (4.0-5.4) 10^6/ul Hgb 10.5 L (12.0-16.0) g/dl Hct 31 L (35-47) % MCV 92 (80-97) fL MCH 31 (27-31) pg MCHC 34 (31-36) g/dl RDW 15 (10.5-15) % Plt Count 233 (150-450) 10^3/ul MPV 7 L (7.4-10.4) um3 Neut % (Auto) 87.6 H (38-83) % Lymph % (Auto) 7.1 L (25-47) % [place] % (Auto) 4.7 (1-9) % Eos % (Auto) 0.3 (0-6) % Baso % (Auto) 0.3 (0-2) % Absolute Neuts (auto) 9.3 H (1.5-7.7) 10^3/ul Absolute Lymphs (auto) 0.8 L (1.0-4.8) 10^3/ul Absolute Monos (auto) 0.5 (0-0.8) 10^3/ul Absolute Eos (auto) 0 (0-0.6) 10^3/ul Absolute Basos (auto) 0 (0-0.2) 10^3/ul Absolute Nucleated RBC 0 10^3/ul Nucleated RBC % 0 Sodium 132 L (133-145) mmol/L Potassium 3.9 (3.5-5.0) mmol/L Chloride 101 (101-111) mmol/L Carbon Dioxide 25 (22-32) mmol/L Anion Gap 6 (2-11) mmol/L BUN 14 (6-24) mg/dL Creatinine 0.89 (0.51-0.95) mg/dL Est GFR ( Amer) 79.5 (>60) Est GFR (Non-Af Amer) 61.8 (>60) BUN/Creatinine Ratio 15.7 (8-20) Glucose 109 H (70-100) mg/dL Lactic Acid 1.1 (0.5-2.0) mmol/L Calcium 9.3 (8.6-10.3) mg/dL Total Bilirubin 0.80 (0.2-1.0) mg/dL AST 16 (13-39) U/L ALT 11 (7-52) U/L Alkaline Phosphatase 60 (34-104) U/L Troponin I Pending Total Protein 6.2 L (6.4-8.9) g/dL Albumin 3.3 (3.2-5.2) g/dL Globulin 2.9 (2-4) g/dL Albumin/Globulin Ratio 1.1 (1-3) Microbiology and Other Data: Microbiology 06/24/17 01:20 Legionella Urinary Antigen - Final Urine Negative Legionella Streptococcus pneumoniae Ag Screen - Final Negative S. pneumo Antigen 06/24/17 00:05 Influenza Types A,B Antigen (YASMIN) - Final Nasopharyngeal Specimen received for Influenza A/B Molecular testing Assess/Plan/Problems-Billing Assessment: - Patient Problems (1) Pneumonia Current Visit: Yes Status: Acute Code(s): J18.9 - PNEUMONIA, UNSPECIFIED ORGANISM SNOMED Code(s): 539183240 Comment: Admitted 29 days after discharge from [facility]. Clinically responding to antibiotics as of 06/24. Continue antibiotics. Awaiting blood C&S report. O2 sat 95-97% on RA 06/24 at rest by me. (2) Atrial fibrillation Current Visit: Yes Status: Acute Code(s): I48.91 - UNSPECIFIED ATRIAL FIBRILLATION SNOMED Code(s): 65621676 Comment: About 1 hr of atrial fib 8 AM 06/25, rate [address] Simon to consult. INR goal 2.0-2.5 per [facility] physician. I think she missed her dose 06/23. INR 06/25 1.77, should come up as only took average of about 1.5 mg at home and is on antibiotics now. 05/2017: amputation of L atreial appendage, R and L sided ablation. INR 06/26. (3) S/P mitral valve repair Current Visit: Yes Status: Acute Code(s): Z98.890 - OTHER SPECIFIED POSTPROCEDURAL STATES SNOMED Code(s): 86229785850954 Comment: 05/2017: Mitral valve reconstruction with a #34 future ring. Amputation of L atrial appendage. (4) Status post tricuspid valve repair Current Visit: Yes Status: Acute Code(s): Z98.890 - OTHER SPECIFIED POSTPROCEDURAL STATES SNOMED Code(s): 065808203601979 Comment: 05/2017: Tricuspid valve annuloplasty with a Simplici-T band. (5) Rheumatoid arthritis Current Visit: Yes Status: Acute Code(s): M06.9 - RHEUMATOID ARTHRITIS, UNSPECIFIED SNOMED Code(s): 43663723 Comment: Pt advised to omit MTX this Jun 28.
--- NOTE | 2017-06-26 09:17 | PN ---
Progress Note - Progress Note Date of Service: 06/26/17 Note: Time spend on discharge 50 minutes.
--- NOTE | 2017-06-26 11:17 | DS ---
CC: Dr. Coronado; Dr. Moore DATE OF ADMISSION: 06/23/2017. DATE OF DISCHARGE: 06/26/2017. HISTORY OF PRESENT ILLNESS: This 76-year-old woman presented with chest pain. She had open heart s urgery at the [facility] on 05/18/2017. She had reconstruction of her mitral valve and repair of the tricuspid valve, as well as a MAZE procedure. She had a surgical site infection and completed a course of antibiotics. She had been home for awhile and awoken at night with right ches t pain radiating to the right shoulder. She had a right lower lobe infiltrate and was felt to have pneumonia. She was started on Vancomycin , Cefepime, and Ciprofloxacin. She did well in the hospital. Urine test for legionella and pneumoco ccus antigens were both negative. Two sets of blood cultures were negative. Her highest temperatur e here was 100.9. She had no temperature over 100 for the last 36 hours in the hospital. She felt much better. She was not coughing. She did not require oxygen. She was able to walk in [employer] he halls easily. She did have episodes of atrial fibrillation, typically in the morning that lasted an enjw-inr-a-jarvis f. Her heart rate and sinus rhythm was in the 80s, about 120s in atrial fibrillation. I am going t o increase her Metoprolol dose to 25 b.i.d., a dose she had been on previous to her surgery. She wi ll complete her antibiotics with seven days of Ciprofloxacin at home. FINAL DIAGNOSES: 1. Pneumonia. 2. Atrial fibrillation. 3. Status post mitral valve repair. 4. Status post tricuspid valve repair. 5. Rheumatoid arthritis. The patient was instructed to not take her Methotrexate this coming Thursday. DISCHARGE MEDICATIONS: 1. Ciprofloxacin 500 mg every 12 hours. 2. Metoprolol Tartrate 25 mg b.i.d. 3. Guaifenesin 10 ml every 4 hours prn. 4. Glucosamine Chondroitin as prescribed. 5. Oxycodone 5 mg every 4 hours prn. 6. Methotrexate 15 mg every Thursday, but to skip this Thursday. 7. Furosemide 20 mg every Thursday and Thursday. 8. Multivitamins with mineral daily. 9. Gabapentin 100 mg at bedtime. 10. Folic acid 2 mg daily. 11. Aspirin 81 mg daily. 12. Acetaminophen 1000 mg every 6 hours prn. 13. Warfarin 2 mg alternating with 1 mg as prescribed. The patient will have an INR on June 29. [id number]/[facility] #: [id number]
[2017-06-26] MEDS ORDERED: Metoprolol Tartrate TAB* 25 MG PO SCH (21:00)
[2017-06-27] MEDS ORDERED: Furosemide TAB* 20 MG PO SCH (09:00)
== END 2017-06-26 10:17 | disposition home or self-care (01) | DRG 194 ==
LOC: ED 15:43 → MEDTELE 23:09
PROVIDERS: ADMIT Hospitalist; ATTEND Internal Medicine
DX: J18.9 Pneumonia, unspecified organism (principal); J90 Pleural effusion, not elsewhere classified; I48.91 Unspecified atrial fibrillation; G62.9 Polyneuropathy, unspecified; L40.50 Arthropathic psoriasis, unspecified; I25.10 Atherosclerotic heart disease of native coronary artery without angina pectoris; K27.9 Peptic ulcer, site unspecified, unspecified as acute or chronic, without hemorrhage or perforation; M06.9 Rheumatoid arthritis, unspecified; Z98.890 Other specified postprocedural states; I45.10 Unspecified right bundle-branch block; Z79.01 Long term (current) use of anticoagulants; Z79.1 Long term (current) use of non-steroidal anti-inflammatories (NSAID); Z79.82 Long term (current) use of aspirin; Z79.891 Long term (current) use of opiate analgesic; Z79.899 Other long term (current) drug therapy; Z88.8 Allergy status to other drugs, medicaments and biological substances; Z87.891 Personal history of nicotine dependence; Z82.49 Family history of ischemic heart disease and other diseases of the circulatory system; Z83.3 Family history of diabetes mellitus; M85.80 Other specified disorders of bone density and structure, unspecified site
CPT/HCPCS: 36415; 71010; 71275; 80048; 80053; 80202; 82565; 83605; 83880; 84145; 84484; 84520; 85025; 85610; 87040; 87502; 87899; 93005; 94640; 94760; A9270-GY; J0692; J0744; J3370; Q9967

== ENCOUNTER → 2018-06-22 07:30 | Day surgery (SDC) | payer MEDICARE ==
[~2018-06-22 07:30] MED LIST: Buffered Lidocaine 0.9% SYRIN* 5 ML/SYR SYRINGE INTRADERM ONE; Bupivacaine 0.25% SDV PF* 10 ML VIAL INJ ONE; Bupivacaine 0.25% W/EPI* 10 ML SDV ONE; Lidocain 1% EPI 1:100,000 * 30 ML MDV ONE; Methylene Blue 0.5 %* 50 MG/10 ML AMP IV ONE; Midazolam* 1 MG/ML 5 ML VIAL (5 MG) ONE; Mineral Oil Sterile, TOPICAL* 25 ML BTL ONE; Naloxone* 0.4 MG/ML 1 ML VIAL IV PRN; Ondansetron INJ* 2 MG/ML VIAL IV PRN; Propofol* 10 MG/ML 20 ML BTL IV PUSH ONE; ceFAZolin 2 GM in NS PREMIX(*) 2 GM/100 ML BAG IVPB ONE; fentaNYL* 50 MCG/ML 2 ML VIAL (100 MCG VIAL) ONE
[2018-06-22 13:20] VITALS: BP 128/68
== END | disposition home or self-care (01) ==
LOC: OR 07:30
PROVIDERS: ATTEND Plastic Surgery
DX: C44.719 Basal cell carcinoma of skin of left lower limb, including hip (principal); Z87.891 Personal history of nicotine dependence; I48.91 Unspecified atrial fibrillation; Z79.01 Long term (current) use of anticoagulants; E78.5 Hyperlipidemia, unspecified; M13.80 Other specified arthritis, unspecified site; Z85.828 Personal history of other malignant neoplasm of skin
CPT/HCPCS: 88305; A9270-GY; J0690; J2250; J2704; J3010; J3490

== ENCOUNTER → 2018-10-19 09:21 | Day surgery (SDC) | payer MEDICARE ==
[~2018-10-19 09:21] MED LIST changes: +Acetaminophen TAB* 325 MG PO PRN; -Bupivacaine 0.25% SDV PF* 10 ML VIAL INJ ONE; +Lactated Ringers 1000 ML Bag* 1,000 ML IV SCH; -Lidocain 1% EPI 1:100,000 * 30 ML MDV ONE; +Lidocaine 1% INJ* 10 MG/ML 30 ML SDV ONE; -Methylene Blue 0.5 %* 50 MG/10 ML AMP IV ONE; +Midazolam* 1 MG/ML 2 ML VIAL (2 MG) ONE; -Midazolam* 1 MG/ML 5 ML VIAL (5 MG) ONE; -Mineral Oil Sterile, TOPICAL* 25 ML BTL ONE; -Ondansetron INJ* 2 MG/ML VIAL IV PRN; -Propofol* 10 MG/ML 20 ML BTL IV PUSH ONE; +Propofol* 10 MG/ML 20 ML BTL ONE; +ceFAZolin 2 GM PREMIX in ORs 2 GM/50 ML BAG IVPB ONE; -ceFAZolin 2 GM in NS PREMIX(*) 2 GM/100 ML BAG IVPB ONE; +oxyCODONE/Acetamin 5/325 MG* TAB PO PRN
[2018-10-19 17:04] VITALS: BP 126/70
== END | disposition home or self-care (01) ==
LOC: OR 09:21
PROVIDERS: ATTEND Plastic Surgery
DX: C44.712 Basal cell carcinoma of skin of right lower limb, including hip (principal); I08.1 Rheumatic disorders of both mitral and tricuspid valves; Z87.891 Personal history of nicotine dependence; E78.5 Hyperlipidemia, unspecified; M06.9 Rheumatoid arthritis, unspecified; R60.9 Edema, unspecified; I48.91 Unspecified atrial fibrillation; Z79.01 Long term (current) use of anticoagulants; Z85.828 Personal history of other malignant neoplasm of skin
CPT/HCPCS: 88305; J0690; J2250; J2704; J3010

== ENCOUNTER 2018-12-28 14:00 | Inpatient (IN) | payer OTHER, MEDICARE ==
--- NOTE | 2019-02-16 12:54 | HP ---
HISTORY AND PHYSICAL: DATE OF ADMISSION/SURGERY: 03/01/19 DATE OF OFFICE VISIT: 02/16/19 SURGEON: Oly Ordoñez MD* (dictated by JIMBO Vargas). PROCEDURE: Right total knee arthroplasty. CHIEF COMPLAINT: Right knee pain. HISTORY OF PRESENT ILLNESS: Ms. Burkett is a 78-year-old female with end-stage osteoarthritis of the right knee. She has failed conservative treatment and elected to proceed with a right total knee arthroplasty. PAST MEDICAL HISTORY: AFib, RA, and skin cancer. PAST SURGICAL HISTORY: Cardiac ablation and valve repair; tonsillectomy; tubal ligation; surgery for peptic ulcer; basal cell carcinoma removal, bilateral lower extremities. CURRENT MEDICATIONS: 1. Digoxin 125 mcg half a tab daily. 2. Eliquis 5 mg twice a day. 3. Furosemide 20 mg daily as needed. 4. Methotrexate 2.5 mg 6 tabs weekly. 5. Folic acid 1 mg 2 tabs a day. 6. Multivitamin. 7. Biotin. 8. Calcium. 9. Fluticasone nasal spray as needed. ALLERGIES: To CHANTIX, LIPITOR, METOPROLOL, ROSUVASTATIN, ATENOLOL, ZETIA, and DILTIAZEM. FAMILY HISTORY: Coronary artery disease and cancer. SOCIAL HISTORY: She is a 78-year-old female. She lives with her . She does not smoke or use drugs. REVIEW OF SYSTEMS: A complete 14-point review of systems was reviewed with the patient. It was all negative or noncontributory. She denies history of DVT, PE , hepatitis, HIV, or anesthesia problems. PHYSICAL EXAMINATION GENERAL: She is well developed, well nourished, in no acute distress. VITAL SIGNS: She stands 69 inches tall, weighs 156 pounds. Her blood pressure is 100/70, her heart rate is 84. HEENT: Normocephalic, atraumatic. NECK: Supple. No palpable lymph nodes. PULMONARY: The lungs are clear to auscultation bilaterally. CARDIO: Regular rate and rhythm. Strong S1, S2. ABDOMEN: Soft, nontender, nondistended. NEUROLOGICAL: She is alert and oriented x3. MUSCULOSKELETAL: Right lower extremity: The skin is intact. There are no open wounds or abrasions. There is a moderate effusion of the right knee joint. Range of motion is 10 to 120 degrees of flexion. She has some tenderness along the medial joint line. She is able to dorsiflex and plantarflex and has 2+ dorsalis pedis pulse. ASSESSMENT AND PLAN: Ms. Burkett is a 78-year-old female with end-stage osteoarthritis of the right knee. She has failed conservative treatment and elected to proceed with a right total knee arthroplasty. Surgery is scheduled for 03/01/[address] Ordoñez. Dr. Ordoñez discussed the risks and benefits of the surgery at today's visit and all of her questions were answered. She will follow up with Dr. Ordoñez 2 weeks after the surgery. She was instructed to discontinue her Eliquis 3 days prior to the surgery, her last dose should be on 02/25/19. JIMBO VARGAS [id number]/[facility] #: [id number] MTDD
[2019-02-28] MEDS ORDERED: Buffered Lidocaine 1% SYRIN* 1 ML/SYRINGE INTRADERM ONE (10:17)
[2019-03-01] MEDS ORDERED: Tranexamic Acid 1,000 MG in NS 0.9% 50 ML* (outpatient use) IV SCH ×2
[2019-03-01] MEDS ORDERED: Lactated Ringers 1000 ML Bag* 1,000 ML IV SCH ×2 (06:00→14:00)
[2019-03-01] MEDS ORDERED: Famotidine IV* 10 MG/ML 2 ML (20 mg) IV ONE (06:00)
[2019-03-01] MEDS ORDERED: Acetaminophen IV 1GM/100ML * 1,000 MG/100 ML VIAL IVPB ONE (06:00)
[2019-03-01] MEDS ORDERED: Dexamethasone IV* 4 MG/ML 1 ML (4 MG) IV SLOW PU ONE (06:00)
[2019-03-01] MEDS ORDERED: celeCOXIB CAP* 200 MG PO ONE (06:00)
[2019-03-01] MEDS ORDERED: Gabapentin CAP(*) 300 MG PO ONE (06:00)
[2019-03-01] MEDS ORDERED: Gabapentin CAP(*) 300 MG ONE (09:00)
[2019-03-01] MEDS ORDERED: Acetaminophen IV 1GM/100ML * 100 ML ONE (09:00)
[2019-03-01] MEDS ORDERED: Dexamethasone IV* 4 MG/ML 1 ML (4 MG) ONE (09:00)
[2019-03-01] MEDS ORDERED: celeCOXIB CAP* 200 MG ONE (09:00)
[2019-03-01] MEDS ORDERED: Famotidine IV* 10 MG/ML 2 ML (20 mg) ONE (09:01)
[2019-03-01] MEDS ORDERED: ceFAZolin 2 GM PREMIX in ORs 2 GM/50 ML BAG IVPB ONE (09:03)
[2019-03-01] MEDS ORDERED: KETAMINE HCL* 50 MG/ML 10 ML VIAL ONE (09:36)
[2019-03-01] MEDS ORDERED: Midazolam* 1 MG/ML 5 ML VIAL (5 MG) ONE (09:36)
[2019-03-01] MEDS ORDERED: fentaNYL* 50 MCG/ML 2 ML VIAL (100 MCG VIAL) ONE (09:36)
[2019-03-01] MEDS ORDERED: ROPIVACAINE 5 MG/ML 30 ML BTL (0.5%) ONE ×3 (10:07→10:18)
[2019-03-01] MEDS ORDERED: Ondansetron INJ* 2 MG/ML VIAL ONE (10:56)
[2019-03-01] MEDS ORDERED: Bupivacaine 0.5% SDV PF* 30ML VIAL ONE (10:56)
[2019-03-01] MEDS ORDERED: Lidocaine 2% PF * 5 ML VIAL ONE (11:29)
[2019-03-01] MEDS ORDERED: HYDROmorphone INJ1* 1 MG/ML SYRINGE IV PRN (11:54)
[2019-03-01] MEDS ORDERED: Naloxone* 0.4 MG/ML 1 ML VIAL IV PRN (11:54)
[2019-03-01] MEDS ORDERED: DiMENhydriNATE IV* 50 MG/ML VIAL IV PUSH PRN (11:54)
[2019-03-01] MEDS ORDERED: Ondansetron INJ* 2 MG/ML VIAL IV PRN ×2 (11:54→13:24)
[2019-03-01] MEDS ORDERED: fentaNYL* 50 MCG/ML 2 ML VIAL (100 MCG VIAL) IV PRN (11:54)
[2019-03-01] MEDS ORDERED: traMADol TAB* 50 MG PO PRN (13:24)
[2019-03-01] MEDS ORDERED: oxyCODONE/Acetamin 5/325 MG* TAB PO PRN (13:24)
[2019-03-01] MEDS ORDERED: Polyethylene Glycol 3350* 17 GM PACKET PO PRN (13:24)
[2019-03-01] MEDS ORDERED: Cyclobenzaprine TAB* 10 MG PO PRN (13:24)
[2019-03-01] MEDS ORDERED: Ondansetron TAB* 4 MG PO PRN (13:24)
[2019-03-01] MEDS ORDERED: Morphine INJ* 2 MG/ML 1 ML SYRINGE (TWO MG - NEW SYRINGE VERSION) IV PRN (13:24)
[2019-03-01] MEDS ORDERED: diPHENhydraMINE IV* 50 MG/ML 1 ml VIAL (BENADRYL) IV PRN (13:24)
[2019-03-01] MEDS ORDERED: Bisacodyl SUPP* 10 MG SUPP PR PRN (13:24)
[2019-03-01] MEDS ORDERED: Magnesium Hydroxide LIQ* 30 ML UDC PO PRN (13:24)
[2019-03-01] MEDS ORDERED: Furosemide TAB* 20 MG PO PRN (13:27)
--- NOTE | 2019-03-01 15:21 | CONS ---
CC: JIMBO Lester * CONSULTATION REPORT: DATE OF CONSULT: 03/01/19 PRIMARY CARE PROVIDER: JIMBO Lester. REQUESTING PHYSICIAN IN CONSULT: Dr. Oly Ordoñez. ATTENDING PHYSICIAN: Dr. Rebeca aMrx (dictated by JIMBO Tinsley). REASON FOR CONSULT: Co-medical management. HISTORY OF PRESENT ILLNESS/HOSPITAL COURSE: I refer you to Dr. Ordoñez's history and physical dictated on 02/16/19 for full details, but in short, Ms. Burkett is a 78- year-old female with a past medical history of atrial fibrillation and psoriatic arthritis, who presented to [facility] [place] today for an elective right total knee arthroplasty due to failing conservative treatment. At this time, she is seen in the PACU. She notes that "I can't feel from my hips down." She is noted to have had nerve block and spinal anesthesia. She denies chest pain, shortness of breath, abdominal pain, nausea, vomiting, diarrhea, constipation, or pain in the calves. She denies cough or fever. She has a Tubbs in place. PAST MEDICAL HISTORY: 1. Atrial fibrillation. 2. Psoriatic arthritis. 3. Skin cancer. PAST SURGICAL HISTORY: Cardiac ablation, valve repair, tonsillectomy, tubal ligation, peptic ulcer surgery, basal cell carcinoma removal from bilateral lower extremities. HOME MEDICATIONS: 1. Acetaminophen 650 mg p.o. b.i.d. 2. Apixaban 5 mg p.o. b.i.d. 3. Biotin 500 mcg p.o. at bedtime. 4. Calcium carbonate/vitamin D3 one tab p.o. q.a.m. 5. Diclofenac 1% gel 1 application topically q.a.m. to the knees. 6. Digoxin 0.0625 mg p.o. at 1700. 7. Folic acid 2 mg p.o. q.a.m. 8. Furosemide 20 mg p.o. q.a.m. p.r.n. swelling. 9. Methotrexate 15 mg p.o. q. week. 10. Multivitamin/minerals 1 tab p.o. q.a.m. ALLERGIES: STATIN, muscle ache; VARENICLINE, diarrhea; DILTIAZEM, fatigue, edema; METOPROLOL, severe fatigue; ATENOLOL, fatigue; EZETIMIBE. FAMILY HISTORY: Positive for breast cancer, diabetes mellitus, heart disease, CVA. SOCIAL HISTORY: The patient states that she quit smoking 4 to 5 years ago. Prior to that, she smoked half-a-pack per day for approximately 40 years. She rarely drinks alcohol, stating that she drinks less than weekly. She is retired. She lives with her . In the event that she is unable to make her own medical decisions, she has appointed her , Paddy Burkett, to be her surrogate decision maker. REVIEW OF SYSTEMS: A 10-point review of systems was performed and all the pertinent positives and negatives are in the HPI. All other systems are negative. PHYSICAL EXAM: General: Ms. Burkett a well-developed, well-nourished, older white female, who is sitting up in bed. She appears to be in no acute distress. She is pleasant, cooperative, and appropriate. Vital Signs: Temperature 97.3 temporal, heart rate 76, respiratory rate 19, oxygen saturation 99% on 2 L O2, blood pressure 141/67. HEENT: PERRL. Extraocular movements are intact. Sclerae are without icterus. Hearing is grossly intact. Oral mucous membranes are dry. There are no lesions. The pharynx is clear. Cardiovascular: Irregular rhythm, rate controlled. No murmurs, rubs, or gallops. There is no JVD. Pulmonary: Symmetrical chest expansion. There is no use of accessory muscles. The lungs are clear to auscultation bilaterally without wheeze, rhonchi, or rubs. Abdomen: Bowel sounds noted in all quadrants. The abdomen is soft. There is no tenderness to palpation. Extremities: Skin is warm and smooth bilaterally. There is no clubbing, cyanosis, or edema. Radial and pedal pulses are palpable. The right knee has a clean, dry, and intact dressing in place with a cryo unit in place. The patient does not have sensation intact distally due to nerve block. Neuro: The patient is awake. She is alert and oriented x3. ASSESSMENT AND PLAN: Ms. Burkett is a 78-year-old female with a past medical history of atrial fibrillation and psoriatic arthritis, who presented to [facility] [facility] today for an elective right total knee arthroplasty. The patient will be admitted for: 1. Right total knee arthroplasty. Management per ortho team. 2. Atrial fibrillation. The patient will be continued on her home medication digoxin. She will be started on Eliquis tomorrow per Ortho. 3. Psoriatic arthritis. The patient's methotrexate has been held x2 weeks. She will continue to hold for 2 more weeks per Ortho. 4. Code status: Full code. 5. DVT prophylaxis: Per Ortho, the patient will restart apixaban on postop day 1. TIME SPENT: Approximately 30 minutes was spent on this consultation, greater than half that time was spent with the patient obtaining history, performing physical, and reviewing the plan of care. The case has been reviewed with my attending, Dr. Marx, who is in agreement with the plan of care. JIMBO GARRETT [id number]/[facility] #: [id number] MTDElva
[2019-03-01] MEDS: oxyCODONE/Acetamin 5/325 MG* TAB PO PRN ×2 (16:07→20:15)
--- NOTE | 2019-03-01 17:20 | OP ---
Operative Report - Blank - Operative Report Date of Operation: 03/01/19 Note: NAMITA MAGDALENO 1940 Date of Surgery: 03/01/19 Oly Ordoñez MD Share Holder: Kaylen CHOI did help throughout the procedure with preparation of the knee, wound retraction, manipulation of the knee, and wound closure. Anesthesiologist: Rolando Lozano MD Anesthesia Type: Spinal Preoperative Diagnosis: Right severe degenerative osteoarthritis of the knee Postoperative Diagnosis: As above Procedure Performed: Right Total Knee Arthroplasty Tourniquet time: 51 minutes Complications: None Specimen: Bone and cartilage from the right knee joint sent to pathology. Hardware Used: Cemented [employer] total knee hardware was used - For the femur a size 6 narrow right legion posterior stabilized femoral component, for the tibia a size 5 right chance II tibial baseplate, for the insert a size 9 mm 5-6 constrained articular polyethylene insert, and for the patella a size 35 3-peg all poly patella. Brief History/Indication: NAMITA MAGDALENO was known in clinic and had a history of severe right knee pain and swelling. She failed conservative treatment with anti-inflammatories, pain pills, intra-articular injections and physical therapy. She elected to undergo right total knee arthroplasty due to continued pain and decreased quality of life. Radiographs showed severe end stage osteoarthritis of the knee with bone on bone contact. Informed consent was obtained from the patient. She understood the risks of surgery included but were not limited to: bleeding, infection, damage to nearby structures, intraoperative fracture, nerve palsy, failure of the hardware, early loosening, knee stiffness or loss of motion, anesthesia complications, stroke, heart attack , blood clot and . She wished to proceed. Intra-Operative Findings: Intraoperatively the patient was noted to have severe loss of cartilage in all 3 compartments of the knee. She had 15 degree valgus deformity to start the case and lateral femoral condylar hypoplasia. She was noted to have severe osteopenia. Description of the Procedure: NAMITA MAGDALENO was identified in the preanesthesia unit. Her right knee was marked as the correct operative side. Informed consent was signed and placed in the chart. The patient was taken to the operating room and placed under anesthesia without complication. A bray catheter was placed. A tourniquet was placed on the right thigh. The right lower extremity was prepped and draped in the usual sterile fashion. Preoperative time-out was made to correctly identify the patient, side and site. Appropriate intraoperative antibiotics were given within one hour of incision. Tourniquet was inflated. A midline incision was made and carried sharply down to the extensor mechanism. A new 10 blade was used to make a standard medial parapatellar arthrotomy. The patella was subluxed laterally. Electrocautery was used to dissect soft tissue off the superomedial tibia to the midsagittal plane. The knee was flexed up. The anterior horn of the lateral meniscus and the ACL were sharply incised. A drill was used to enter the distal femur. The intramedullary distal femoral cutting guide was pinned on the distal femur. The oscillating saw was used to make the distal femoral cut. The external rotation guide was pinned on the distal femur and the distal femur was sized to a size 6. The size 6 multi-cutting jig was pinned on the distal femur. The oscillating saw was used to make the appropriate 4 chamfer cuts. Next the PCL was completely released. The extramedullary tibial cutting guide was pinned on the proximal tibia and the oscillating saw was used to make the proximal tibial cut perpendicular to the mechanical axis of the tibia. The bone was carefully removed. The knee was brought out into full extension. The spacer block was placed and had excellent fit with the knee in full extension. The medial and lateral ligaments were well balanced. The flexion and extension gaps were well balanced. The knee was flexed up. Lamina body die maker was placed both medially and laterally. Any remaining meniscus was removed with electrocautery. Curved osteotome was used to remove any posterior osteophytes. The tibial tray and drop radha were placed and confirmed a satisfactory tibial cut. The size 6 right narrow femoral trial was impacted onto the distal femur. This trial had excellent fit and stability. The box for the posterior stabilized implant was prepared using a box cut osteotome and a reamer. Next a tibial tray trial and 9 mm insert trial was placed. The knee was taken through a range of motion and had full extension to 130 degrees of flexion. Patellofemoral tracking was satisfactory. The patella was inverted and sized to a size 35. Three peg holes were drilled through the size 35 drill guide. The trial patella was placed and the knee was taken through a range of motion. There was satisfactory patellofemoral tracking. All trials were removed. The tibia was subluxed anteriorly and sized to a size 5. The proximal tibial was prepared with a size 5 keel punch. All bony cut surfaces were irrigated with sterile saline and dried. Final implants were cemented into place starting with the tibia, followed by the femur, and last the patella. A 9 mm insert trial was placed and the knee was brought into full extension. Tourniquet was turned down and the knee was copiously irrigated with sterile saline. Electrocautery was used to obtain meticulous hemostasis. Once the cement had fully cured, the insert trial was removed. Any excess cement was removed from around the hardware and capsule. Final insert chosen was a 9 mm constrained Chance II articular insert size 5-6 . Stability of the insert was checked and noted to be stable. The extensor mechanism was closed using number 1 vicryls. The rest of the incision was closed in a layered fashion using 0 and 2-0 vicryls. The skin was closed using 3-0 nylon suture. Sterile xeroform, 4x4s and webril were used to cover the incision. [place] wrap and cold pack were used to cover the dressings. The patients anesthesia was reversed without difficulty. She was taken to the PACU in stable condition. Intended weight-bearing will be as tolerated.
[2019-03-01] MEDS: Digoxin TAB* 0.125 MG PO SCH (18:04)
[2019-03-01] MEDS: oxyCODONE TAB* 5 MG TAB PO PRN ×2 (18:14→22:28)
[2019-03-01] MEDS: Acetaminophen TAB* 325 MG PO SCH (19:20)
[2019-03-01] MEDS: ceFAZolin 1 GM ADVAN(*) 1 GM in NS 0.9% 50 ML* 50 ML IVPB SCH (19:22)
[2019-03-01] MEDS: Docusate CAP* 100 MG PO SCH (20:15)
[2019-03-01] MEDS: Magnesium Hydroxide LIQ* 30 ML UDC PO SCH (20:16)
[2019-03-02] MEDS: oxyCODONE/Acetamin 5/325 MG* TAB PO PRN ×5 (00:29→21:04)
[2019-03-02] MEDS: ceFAZolin 1 GM ADVAN(*) 1 GM in NS 0.9% 50 ML* 50 ML IVPB SCH ×2 (03:35→11:42)
[2019-03-02] MEDS: Acetaminophen TAB* 325 MG PO SCH ×3 (03:35→18:54)
[2019-03-02] MEDS: oxyCODONE TAB* 5 MG TAB PO PRN ×3 (03:36→16:46)
[2019-03-02 05:09] LABS: Hematocrit 33 % (35-47); Hemoglobin 10.9 g/dL (12.0-16.0); Mean Platelet Volume 7.5 fL (7.4-10.4); Platelet Count 223 10^3/uL (150-450)
[2019-03-02 05:29] LABS: BUN/Creatinine Ratio 16.1 (8-20); Calcium 8.9 mg/dL (8.6-10.3); EGFR African American 70.7 (>60); EGFR Non-African American 58.5 (>60); Potassium 4.7 mmol/L (3.5-5.0)
[2019-03-02] MEDS: Magnesium Hydroxide LIQ* 30 ML UDC PO SCH ×2 (09:31→21:04)
[2019-03-02] MEDS: Docusate CAP* 100 MG PO SCH ×2 (09:32→21:04)
[2019-03-02] MEDS: Apixaban* 5 MG TAB PO SCH ×2 (09:32→21:05)
--- NOTE | 2019-03-02 09:57 | PN ---
Progress Note - Progress Note Date of Service: 03/02/19 SOAP: Subjective: [] Pt seen at bedside. She feels well. Denies CP, SOB, dizziness, nausea. HX a fib, patient states she goes in and out of a fib without symptoms. Objective: []General: Appears well, NAD RLE: Right knee dressing CDI, thigh soft, DF/PF intact, DP2+, sensation intact to light touch distally Calves supple and nontender without erythema, edema or palpable cords Assessment: [] POD 1 sp rtk Plan: []WBAT PT/OT eliquis 5 mg po BID, home medication continued Plan for DC home today or tomorrow Vital Signs Temp 97.7 F 03/02/19 08:03 Pulse 73 03/02/19 04:42 Resp 16 03/02/19 08:03 BP 104/58 03/02/19 08:03 Pulse Ox 99 03/02/19 08:07 Intake & Output 03/01/19 03/02/19 03/02/19 18:59 06:59 18:59 Intake Total 1840 1945 210 Output Total 1200 1275 Balance 640 670 210 Weight 154 lb Intake: IV Fluids 1600 1045 ABX 55 LR 1600 990 Oral 240 900 210 Output: Tubbs 1200 1275 Other: # Bowel Movements 0 Laboratory Last Values Hgb 10.9 g/dL (12.0-16.0) L 03/02/19 04:32 Hct 33 % (35-47) L 03/02/19 04:32 Plt Count 223 10^3/uL (150-450) 03/02/19 04:32 MPV 7.5 fL (7.4-10.4) 03/02/19 04:32 Sodium 138 mmol/L (135-145) 03/02/19 04:32 Potassium 4.7 mmol/L (3.5-5.0) 03/02/19 04:32 Chloride 107 mmol/L (101-111) 03/02/19 04:32 Carbon Dioxide 28 mmol/L (22-32) 03/02/19 04:32 Anion Gap 3 mmol/L (2-11) 03/02/19 04:32 BUN 15 mg/dL (6-24) 03/02/19 04:32 Creatinine 0.93 mg/dL (0.51-0.95) 03/02/19 04:32 Est GFR ( Amer) 70.7 (>60) 03/02/19 04:32 Est GFR (Non-Af Amer) 58.5 (>60) 03/02/19 04:32 BUN/Creatinine Ratio 16.1 (8-20) 03/02/19 04:32 Glucose 140 mg/dL (70-100) H 03/02/19 04:32 Calcium 8.9 mg/dL (8.6-10.3) 03/02/19 04:32
[2019-03-02] MEDS: Digoxin TAB* 0.125 MG PO SCH (16:46)
[2019-03-03] MEDS: oxyCODONE/Acetamin 5/325 MG* TAB PO PRN ×2 (00:53→09:19)
[2019-03-03] MEDS: Acetaminophen TAB* 325 MG PO SCH ×2 (03:12→09:45)
[2019-03-03 04:53] LABS: Hematocrit 29 % (35-47); Hemoglobin 9.8 g/dL (12.0-16.0); Platelet Count 209 10^3/uL (150-450)
[2019-03-03] MEDS: oxyCODONE TAB* 5 MG TAB PO PRN (05:36)
[2019-03-03 08:04] VITALS: BP 120/62
[2019-03-03] MEDS: Docusate CAP* 100 MG PO SCH (09:18)
[2019-03-03] MEDS: Apixaban* 5 MG TAB PO SCH (09:18)
[2019-03-03] MEDS: Magnesium Hydroxide LIQ* 30 ML UDC PO SCH (09:19)
[2019-03-03] MEDS ORDERED: Ondansetron ODT TAB* 4 MG PO PRN (09:30)
[2019-03-03] MEDS ORDERED: Ondansetron ODT TAB* 4 MG ONE (09:30)
--- NOTE | 2019-03-03 10:12 | DS ---
Orthopedic Discharge Summary - Discharge Summary Date of Admission:03/01/19 Date of Discharge: 03/03/19 Date of Surgery: 03/01/19 Attending Orthopedic Provider: Dr Ordoñez Pre-operative Diagnosis: right knee osteoarthritis Operative Procedure: right total knee replacement Disposition of Patient: home Condition of Patient: stable History: NAMITA MAGDALENO is a 78 year old F with years of increasingly severe right knee pain. Patient has failed conservative management and has elected to undergo a right total knee replacement Hospital Course: NAMITA was admitted to [facility] on 03/01/19. Patient underwent a right total knee replacement without complication followed by a brief recovery in PACU and transfer to the Short Stay Surgical Unit in stable condition. Our hospitalist service, physical therapy and occupational therapy also participated in this patients care. Post-op day 1: patient was alert and in no acute distress. Dressing was clean, dry and intact. Operative extremity dorsiflexion and plantarflexion intact, sensation intact to light touch distally, DP2+. Post-op day two: dressing was changed, incision was clean , dry and intact. Patient was deemed to be medically and orthopedically stable for discharge. Physical therapy goals were met. Home Medications Medication Instructions Recorded Confirmed Type Folic Acid TAB* [Folvite TAB*] 2 mg PO QAM 06/23/17 03/01/19 History Furosemide TAB* [Lasix TAB*] 20 mg PO QAM PRN 06/23/17 03/01/19 History Methotrexate TAB* 15 mg PO HADDAD 06/23/17 03/01/19 History Multivitamins/Minerals TAB* 1 tab PO QAM 06/23/17 03/01/19 History [Theragran/minerals TAB*] Apixaban* [Eliquis*] 5 mg PO BID 06/15/18 03/01/19 History Biotin 500 mcg PO BEDTIME 06/15/18 03/01/19 History Calcium Carbonate/Vitamin D3 1 each PO QAM 06/15/18 03/01/19 History [Calcium 600 + Vit D Tablet] Acetaminophen TAB* [Tylenol TAB*] 650 mg PO BID PRN 10/14/18 03/01/19 History Diclofenac 1% GEL (NF) [Voltaren 1 applic TOPICAL QAM 10/14/18 03/01/19 History 1% GEL (NF)] Digoxin TAB* [Lanoxin TAB*] 0.0625 mg PO 1700 02/16/19 03/01/19 History Acetaminophen TAB* [Tylenol TAB*] 975 mg PO Q8H tab MDD 4000 mg 03/03/19 Rx Docusate CAP* [Colace Cap*] 100 mg PO BID PRN #90 cap 03/03/19 Rx Ondansetron ODT TAB* [Zofran 4 MG 4 mg PO Q6H PRN #20 tab.odt 03/03/19 Rx Odt TAB*] oxyCODONE/Acetamin 5/325 MG* 1 tab PO Q4H PRN tab MDD 10 03/03/19 Rx [Percocet 5/325 TAB*] oxyCODONE/Acetamin 5/325 MG* 2 tab PO Q4H PRN #70 tab MDD 10 03/03/19 Rx [Percocet 5/325 TAB*] Discharge Instructions following Orthopedic Surgery: Activity: * Weight Bearing as tolerated * Continue physical therapy and occupational therapy exercises as shown * Home physical therapy Wound care: * OK to shower on post-op day 3, no bathing, swimming, or submerging wound. * Use gentle soap, pat dry. Cover with gauze, JILL wrap or tape. * Visiting home nurse to do wound checks. Call Orthopedic office for: * Increased drainage * Redness * Increased pain * Fever Go to ER with shortness of breath or chest pain. Diet: * Regular diet * Increase fluids and fiber to prevent constipation. * Continue to use stool softeners, call office if no bowel motion within 48 hours. Medications See Home Medication List in your packet for medications that you should take after discharge. DVT Prophylaxis: resume home dose of eliquis 5 mg, 1 tab every 12 hours . Medication increases bleeding tendency Pain Control: Percocet Dosin/325 mg 1-2 tabs by mouth every 4-6 hours as needed for pain. Maximum of 10 tabs per day. Hold for sedation. Wean off as soon as pain allows Please note that Percocet contains Tylenol (acetaminophen). Maximum daily dose of Tylenol is 4000 mg from all sources. Antibiotics are required prior to any dental work. FOLLOW UP: Follow up with [keon] Within 10-14 days, call for appointment Please call our office with any questions or concerns ([phone])
== END 2019-03-03 11:58 | disposition home or self-care (01) | DRG 470 ==
LOC: AA 03-01 08:10 → SSU 03-01 13:24
PROVIDERS: ADMIT Orthopaedic Surgery Adult Reconstructive Orthopaedic Surgery; ATTEND Orthopaedic Surgery Adult Reconstructive Orthopaedic Surgery
PROC: 0SRC0J9 Replacement of Right Knee Joint with Synthetic Substitute, Cemented, Open Approach (ICD-10-PCS; principal; 2019-03-01 11:00)
DX: M17.0 Bilateral primary osteoarthritis of knee (principal); I48.91 Unspecified atrial fibrillation; M06.9 Rheumatoid arthritis, unspecified; M25.461 Effusion, right knee; L08.89 Other specified local infections of the skin and subcutaneous tissue; M16.0 Bilateral primary osteoarthritis of hip; M47.9 Spondylosis, unspecified; M85.88 Other specified disorders of bone density and structure, other site; K21.9 Gastro-esophageal reflux disease without esophagitis; I48.0 Paroxysmal atrial fibrillation; M21.061 Valgus deformity, not elsewhere classified, right knee; M25.761 Osteophyte, right knee; Z85.828 Personal history of other malignant neoplasm of skin; Z98.51 Tubal ligation status; Z87.11 Personal history of peptic ulcer disease; Z88.8 Allergy status to other drugs, medicaments and biological substances; Z82.49 Family history of ischemic heart disease and other diseases of the circulatory system; Z87.891 Personal history of nicotine dependence; Z87.01 Personal history of pneumonia (recurrent); Z98.49 Cataract extraction status, unspecified eye; Z80.3 Family history of malignant neoplasm of breast; Z83.3 Family history of diabetes mellitus; Z72.89 Other problems related to lifestyle; Z95.2 Presence of prosthetic heart valve
CPT/HCPCS: 36415; 80048; 85014; 85018; 85049; A9270-GY; C1776; G8978-GP-CL; G8979-GP-CI; J0690; J1100; J2250; J2405; J2795; J3010; J3490

== ENCOUNTER 2021-05-24 06:20 | Inpatient (IN) ==
[~2021-05-24 06:20] MED LIST changes: -Acetaminophen TAB* 325 MG PO PRN; -Buffered Lidocaine 0.9% SYRIN* 5 ML/SYR SYRINGE INTRADERM ONE; +Buffered Lidocaine 1% SYRIN 1 ml INTRADERM ONE; -Bupivacaine 0.25% W/EPI* 10 ML SDV ONE; -Lactated Ringers 1000 ML Bag* 1,000 ML IV SCH; +Lactated Ringers 1000 ml BAG 1,000 ML IV SCH; -Lidocaine 1% INJ* 10 MG/ML 30 ML SDV ONE; -Midazolam* 1 MG/ML 2 ML VIAL (2 MG) ONE; -Naloxone* 0.4 MG/ML 1 ML VIAL IV PRN; -Propofol* 10 MG/ML 20 ML BTL ONE; -ceFAZolin 2 GM PREMIX in ORs 2 GM/50 ML BAG IVPB ONE; -fentaNYL* 50 MCG/ML 2 ML VIAL (100 MCG VIAL) ONE; -oxyCODONE/Acetamin 5/325 MG* TAB PO PRN
[2021-05-24] MEDS ORDERED: ceFAZolin 2 GM in NS PREMIX 2 GM/100 ML BAG IVPB ONE (06:56)
[2021-05-24] MEDS ORDERED: fentaNYL 250 mcg/5 ml 50 MCG/ML 5 ml VIAL (250 MCG) ONE (07:14)
[2021-05-24] MEDS ORDERED: Propofol 10 MG/ML 20 ML BTL ONE (07:14)
[2021-05-24] MEDS ORDERED: Ondansetron 4 mg VIAL 2 MG/ML 2 ml VIAL ONE (07:14)
[2021-05-24] MEDS ORDERED: Dexamethasone IV 4 MG/ML VIAL 1 ml VIAL ONE (07:14)
[2021-05-24] MEDS ORDERED: Lidocaine 2% PF 5 ML VIAL ONE (07:14)
[2021-05-24] MEDS ORDERED: Rocuronium 50 mg VIAL 10 mg/ml 5 ml VIAL (50 mg) ONE (07:14)
[2021-05-24] MEDS ORDERED: Midazolam 2 mg/2 ml VIAL 1 mg/ml 2 ml VIAL (2 mg) ONE (07:14)
[2021-05-24 07:28] LABS: INR 1.19 (0.86-1.15)
[2021-05-24] MEDS ORDERED: ROPIVACAINE 5 MG/ML 30 ML BTL (0.5%) ONE (07:35)
[2021-05-24] MEDS ORDERED: DiMENhydriNATE IV 50 mg/ml 1 ml VIAL IV PUSH PRN (08:35)
[2021-05-24] MEDS ORDERED: diPHENhydraMINE IV 50 MG/ML 1 ml VIAL (BENADRYL) IV PRN ×2 (08:35→10:58)
[2021-05-24] MEDS ORDERED: Naloxone 0.4 mg VIAL 0.4 mg/ml 1 ml VIAL IV PRN (08:35)
[2021-05-24] MEDS ORDERED: fentaNYL 100 mcg/2 ml 50 MCG/ML VIAL IV PRN (08:35)
[2021-05-24] MEDS ORDERED: Ketamine HCL 50 mg/ml 10 ml VIAL (500 MG) ONE (09:25)
[2021-05-24] MEDS ORDERED: Acetaminophen IV 1 GM/100ML 100 ML IV ONE (10:05)
[2021-05-24] MEDS ORDERED: EPHEDrine (Pressors) 50 MG/ML VIAL ONE (10:23)
[2021-05-24] MEDS ORDERED: diPHENhydraMINE 25 mg TAB PO PRN (10:58)
[2021-05-24] MEDS ORDERED: Magnesium Hydroxide LIQ 30 ML UDC PO PRN (10:58)
[2021-05-24] MEDS ORDERED: Ondansetron 4 mg VIAL 2 MG/ML 2 ml VIAL IV PRN (10:58)
[2021-05-24] MEDS ORDERED: Ondansetron ODT 4 mg TAB 4 MG TAB PO PRN (10:58)
[2021-05-24] MEDS ORDERED: Morphine 2 MG/ML SYRINGE IV PRN (10:58)
[2021-05-24] MEDS ORDERED: Lactated Ringers 1000 ml BAG 1,000 ML IV SCH (11:00)
[2021-05-24] MEDS ORDERED: HYDROmorphone 1 MG/1 ML SYRINGE ONE (12:06)
[2021-05-24] MEDS: HYDROmorphone 1 MG/1 ML SYRINGE IV PRN ×5 (12:16→12:56)
[2021-05-24] MEDS ORDERED: NS 0.9% 500 ml BAG 500 ML IV ONE (15:19)
[2021-05-24] MEDS: ceFAZolin 1 GM ADVAN 1 GM in NS 0.9% 50 ML 50 ML IVPB SCH (16:22)
[2021-05-24] MEDS: Magnesium Hydroxide LIQ 30 ML UDC PO SCH (21:46)
[2021-05-25 04:57] LABS: Hematocrit 31 % (35-47); Hemoglobin 9.9 g/dL (12.0-16.0); Mean Platelet Volume 7.2 fL (7.4-10.4); Platelet Count 206 10^3/uL (150-450)
[2021-05-25 05:16] LABS: Calcium 8.3 mg/dL (8.6-10.3); EGFR Non-African American 47.9 (>60); Potassium 4.9 mmol/L (3.5-5.0)
[2021-05-25] MEDS: ceFAZolin 1 GM ADVAN 1 GM in NS 0.9% 50 ML 50 ML IVPB SCH ×2 (07:42)
[2021-05-25] MEDS: Vitamin THERAPEUTIC TAB PO SCH (09:05)
[2021-05-25] MEDS: Magnesium Hydroxide LIQ 30 ML UDC PO SCH ×2 (09:05→22:15)
[2021-05-26 06:17] LABS: Hematocrit 28 % (35-47); Hemoglobin 9.2 g/dL (12.0-16.0); Mean Platelet Volume 7.2 fL (7.4-10.4); Platelet Count 201 10^3/uL (150-450)
[2021-05-26] MEDS: Vitamin THERAPEUTIC TAB PO SCH (07:58)
[2021-05-26] MEDS: Magnesium Hydroxide LIQ 30 ML UDC PO SCH ×2 (07:58→21:42)
[2021-05-27 06:40] LABS: Hematocrit 28 % (35-47); Hemoglobin 9.1 g/dL (12.0-16.0); Platelet Count 211 10^3/uL (150-450)
[2021-05-27] MEDS: Magnesium Hydroxide LIQ 30 ML UDC PO SCH (09:07)
[2021-05-27] MEDS: Vitamin THERAPEUTIC TAB PO SCH (09:07)
[2021-05-28] MEDS: Magnesium Hydroxide LIQ 30 ML UDC PO SCH ×3 (00:12→20:45)
[2021-05-28] MEDS: Lactulose 30 ml UDC PO PRN ×2 (06:47→06:48)
[2021-05-28 07:42] LABS: Hematocrit 31 % (35-47); Hemoglobin 10.4 g/dL (12.0-16.0); Mean Platelet Volume 7.1 fL (7.4-10.4); Platelet Count 290 10^3/uL (150-450)
[2021-05-28] MEDS: Vitamin THERAPEUTIC TAB PO SCH (08:46)
[2021-05-29 06:59] LABS: Hematocrit 31 % (35-47); Hemoglobin 10.5 g/dL (12.0-16.0); Mean Platelet Volume 6.7 fL (7.4-10.4); Platelet Count 327 10^3/uL (150-450)
[2021-05-29] MEDS: Vitamin THERAPEUTIC TAB PO SCH (09:04)
[2021-05-29] MEDS: Magnesium Hydroxide LIQ 30 ML UDC PO SCH (09:06)
[2021-05-29 11:44] VITALS: BP 109/69
== END 2021-05-29 14:29 | DRG 470 ==
LOC: AA 06:20 → SSU 13:18
PROVIDERS: ADMIT Orthopaedic Surgery Adult Reconstructive Orthopaedic Surgery; ATTEND Orthopaedic Surgery Adult Reconstructive Orthopaedic Surgery